=== PATIENT | female | born 1980 | race Caucasian/White ===

== ENCOUNTER 2020-12-19 14:33 | Outpatient (RCR) | payer OTHER, SELFPAY ==
[2019-04-09 11:58] VITALS: BMI 41.6
== END 2021-02-19 23:59 ==
LOC: IMMUN 14:33
PROVIDERS: Visit Provider Family Medicine
DX: Z23 Encounter for immunization (principal)
CPT/HCPCS: 0002A; 91300

== ENCOUNTER 2021-06-22 19:14 | Emergency (ER) | payer OTHER, SELFPAY ==
[2021-06-22 19:16] VITALS: BP 128/87; PULSE 112; RESP 16; TEMP 36.3; O2SAT 97; O2SAT 98; BMI 45.6
--- NOTE | 2021-06-22 20:22 | RAD_ITS ---
STUDY: X-RAY CHEST REASON FOR EXAM: Female, 41 years old. Neutropenic Fever TECHNIQUE: PA and lateral views of the chest. COMPARISON: 10/22/2014 FINDINGS: Left subclavian chest port with tip overlying the upper right atrium. The lungs are clear and expanded. There is no demonstrated pleural abnormality. Normal size heart. Normal mediastinum and kiesha. Normal visualized pulmonary arteries. Normal visualized aortic arch and descending thoracic aorta. Normal visualized thoracic spine. Normal visualized ribs, clavicles, and shoulders. There is no demonstrated abnormality of the visualized soft tissue structures of the upper abdomen. RAD/Chest PA and Lateral IMPRESSION: No acute cardiopulmonary process. Electronically Signed: Andrés Grover MD ([place]) at 21:17 EDT , Service support ,
--- NOTE | 2021-06-22 21:01 | EX.ED.DYSGE1 ---
HPI History of Present Illness Chief Complaint: Fever Informant: patient Narrative Narrative: Patient presents with fever while taking chemotherapy. Symptoms started last night. She started with a bit of a sore throat and mild congestion. She was seen earlier today. Negative strep. Covid was done but not resulted yet. Later today she has now developed a bit of a cough. She states she is not short of breath but she just occasionally hears some wheezing or extra sounds that she is not used to hearing. She has no history of pulmonary disease. She is not having nausea vomiting diarrhea or abdominal pain. No rashes. No sore areas. No soreness at her Mediport. Patient was diagnosed with breast cancer the end of March. She is getting every other week chemotherapy. Her last chemo was just about 2 weeks ago on Thursday. She contacted her oncologist. Because her fever went up to 100.5 she was referred in here to evaluate for possibility of neutropenic fever. [facility] Medical History (Updated 06/22/21 @ 22:[address] Manuel Noyola MD) Hay fever History of removal of cervix but not uterus Home Medications ciprofloxacin HCl 500 mg PO BID #14 tab 06/22/21 [Rx Last Taken Unknown] escitalopram oxalate 10 mg DAILY 06/22/21 [History Last Taken Unknown] Allergy/AdvReac Type Severity Reaction Status Date / Time codeine Allergy Severe Swelling Verified 04/09/19 11:57 iodine Allergy Hives Verified 06/22/21 19:15 shellfish derived Allergy Hives Verified 04/09/19 11:57 Family History Other Cancer Heart disease Surgical History History of delivery Social History Smoking Status: Unknown if ever smoked alcohol intake: never ROS ROS ED Constitutional Constitutional ED: Reports chills and fever(s); Denies sweats Eyes Eyes: Denies blurry vision or change in vision ENT ENT ED: Reports rhinorrhea and sore throat; Denies ear pain Cardiovascular Cardiovascular: Denies chest pain or palpitations Respiratory/Chest Respiratory/Chest: Reports cough; Denies dyspnea or sputum Gastrointestinal Gastrointestinal: Denies abdominal pain, diarrhea, nausea or vomiting Genitourinary Genitourinary ED: Denies dysuria, hematuria or urinary frequency Musculoskeletal Musculoskeletal: Reports myalgias Integumentary Denies abscess, Abrasions or rash Neurologic Neurologic: Denies weakness Psychiatric Psychiatric: Denies anxiety or depression Endocrine Endocrinology: Denies polydipsia or polyuria Allergic/Immunologic Allergic/Immunologic ED: Denies mouth swelling or urticaria EXAM Physical Exam Const Vital Signs: 06/22/21 19:16 06/22/21 21:14 06/22/21 21:16 Temperature 97.4 F L 97.5 F L Temperature Source Temporal Temporal Pulse Rate 112 H 95 Respiratory Rate 16 17 Blood Pressure 128/87 H 135/80 H Blood Pressure Mean 100 98 Pulse Ox 98 96 96 Oxygen Delivery Method Room Air Room Air Room Air 06/22/21 21:17 Temperature Temperature Source Pulse Rate Respiratory Rate 17 Blood Pressure Blood Pressure Mean Pulse Ox Oxygen Delivery Method Positive well nourished and well developed Constitutional Narrative: Despite her history, patient looks nontoxic at this time. General Appearance ED: well developed and NAD HEENT Reports moist mucous membranes HEENT Narrative: Mucous membranes are moist. I see no exudate or swelling. I do not see any signs of thrush either. Negative for trauma or tenderness Eyes General Eye ED: Negative for pale conjunctiva or scleral icterus Neck no lymphadenopathy and no JVD Chest Wall inspection of chest normal Resp normal respiratory effort Resp Narrative: I initially heard a slight wheeze in the left upper lobe. But after another deep breath it disappeared. There may be some very mild rhonchi. No rales. Her med port in the left upper chest is clean dry intact and not red. It is nontender. Cardio regular rhythm Rate: tachycardic GI normal to inspection, nondistended, normoactive bowel sounds and non-tender Palpation: soft Back/Spine no CVA tenderness Extremity normal to inspection Neuro oriented x3 Sensorium / Orientation: alert Psych mental status grossly normal Skin no rashes or lesions noted MDM MDM MDM Narrative Medical decision making narrative: Some of the patient's initial labs were abnormal. However, we found that the Mediport may not have been fully flushed. These were redrawn. Her PT and INR and PTT are now normal. Electrolytes show no marked abnormalities. Liver function test is normal. Lactate is normal. Her white count is 18.4. Hemoglobin is a little bit low at 9.3. Platelets are 141. Chest x-ray shows no acute process. Covid is negative. I am still waiting on her urinalysis. I discussed the case with Dr. Be who knows this patient quite well. He explained that we will start her on Cipro. We are still waiting her urinalysis but still we will get her started on Cipro. We will give her a dose of Levaquin here. He thinks the white count may also be up because she has received Neulasta. She has chemotherapy coming on Thursday will be rechecked. Lab Data Labs: Laboratory Results - last 24 hr 06/22/21 06/22/21 06/22/21 20:52 20:52 20:52 WBC 18.4 H RBC 3.49 L Hgb 9.3 L Hct 29.5 L MCV 84.5 MCH 26.6 L MCHC 31.5 L RDW Std Deviation 43.7 RDW Coeff of Jenny 14.8 H Plt Count 141 L MPV 9.7 Neut % (Auto) Not Reportable Absolute Neuts (auto) 16.5 H Absolute Lymphs (auto) 1.10 Total Counted 100 Neutrophils % (Manual) 64 Band Neutrophils % 6 H Lymphocytes % (Manual) 6 L Monocytes % (Manual) 4 Metamyelocytes % 13 H Myelocytes % 7 H Nucleated RBCs/100 WBC 3 Differential Comment MANUAL DIFF Diff Path Review May foll Platelet Estimate ADEQUATE RBC Morphology N CYTIC Polychromasia 1+ PT 15.5 H INR 1.3 APTT 186.8 H* Sodium Cancelled Potassium Cancelled Chloride Cancelled Carbon Dioxide Cancelled Anion Gap Cancelled BUN Cancelled Creatinine Cancelled Estim Creat Clear Calc Cancelled Est GFR (MDRD) Af Amer Cancelled Est GFR (MDRD) Non-Af Cancelled BUN/Creatinine Ratio Cancelled Glucose Cancelled Lactic Acid Calcium Cancelled Total Bilirubin Cancelled AST Cancelled ALT Cancelled Alkaline Phosphatase Cancelled Total Protein Cancelled Albumin Cancelled Globulin Cancelled Albumin/Globulin Ratio Cancelled 06/22/21 06/22/21 06/22/21 20:52 21:36 21:36 WBC RBC Hgb Hct MCV MCH MCHC RDW Std Deviation RDW Coeff of Jenny Plt Count MPV Neut % (Auto) Absolute Neuts (auto) Absolute Lymphs (auto) Total Counted Neutrophils % (Manual) Band Neutrophils % Lymphocytes % (Manual) Monocytes % (Manual) Metamyelocytes % Myelocytes % Nucleated RBCs/100 WBC Differential Comment Diff Path Review Platelet Estimate RBC Morphology Polychromasia PT 12.5 INR 1.0 APTT 25.1 Sodium 140 Potassium 3.8 Chloride 107 Carbon Dioxide 26.0 Anion Gap 7 BUN 6 L Creatinine 0.58 Estim Creat Clear Calc 112.54 Est GFR (MDRD) Af Amer 144 Est GFR (MDRD) Non-Af 119 BUN/Creatinine Ratio 10.3 Glucose 96 Lactic Acid 0.6 Calcium 8.4 L Total Bilirubin 0.30 AST 20 ALT 32 Alkaline Phosphatase 105 Total Protein 6.5 Albumin 3.0 L Globulin 3.5 Albumin/Globulin Ratio 0.9 Radiography Diagnostic Testing: Clinical Impression(s) from Imaging Studies Chest X-Ray 06/22/21 20:22 IMPRESSION: No acute cardiopulmonary process. Electronically Signed: Andrés Grover MD ([place]) at 21:17 EDT , Service support , Discharge Plan Triage Chief Complaint: Fever ED Provider: Manuel Noyola Dx/Rx/DC Orders Clinical Impression: Fever, Leukocytosis, History of breast cancer Prescriptions: New ciprofloxacin HCl [ciprofloxacin HCl] 500 MG tablet 500 mg PO BID Qty: 14 RF: 0 No Action escitalopram oxalate 10 mg tablet 10 mg DAILY RF: 0 Primary Care Provider: Lui Simpson Referrals: Dwaine Be DO [STAFF PHYSICIAN] - 2 Days Lui Simpson MD [Primary Care Provider] - Disposition Disposition: Home, Self Care
[2021-06-22 21:07] LABS: Hematocrit 29.5 % (37-47); Hemoglobin 9.3 g/dL (12.0-15.0); Mean Corp Hgb Conc 31.5 g/dL (32-36); Mean Corpuscular Hgb 26.6 pg (27.0-32.0); Mean Corpuscular Volume 84.5 fL (81-99); Mean Platelet Vol. 9.7 fl (6.2-12.0); POSITIVE COUNT YES; POSITIVE DIFFERENTIAL YES; POSITIVE MORPHOLOGY YES; Platelet Count 141 K/mm3 (150-450); RBC Distribution Width CV 14.8 % (11.6-14.6); RBC Distribution Width SD 43.7 fl (35.1-43.9); Red Blood Count 3.49 M/mm3 (4.2-5.4); White Blood Count 18.4 K/mm3 (4.4-11.0)
[2021-06-22 21:14] VITALS: BP 135/80; PULSE 95; RESP 17; TEMP 36.4; O2SAT 96
[2021-06-22 21:16] VITALS: O2SAT 96
[2021-06-22 21:17] VITALS: RESP 17
[2021-06-22] MEDS: 0.9% Normal Saline 1,000 ML 50 ML IV (21:17)
[2021-06-22 21:18] LABS: International Normalized Ratio 1.3; Prothrombin Time (Protime)PT. 15.5 SECONDS (11.7-14.9)
[2021-06-22 21:21] LABS: Differential Indicated MANUAL DIFF
[2021-06-22 21:38] LABS: Partial Thromboplast Time 186.8 Seconds (24.1-36.2)
[2021-06-22 21:45] LABS: Lactic Acid 0.6 mmol/L (0.4-1.9)
[2021-06-22 22:10] LABS: Bacteria 0 SEEN /hpf (None Seen); Mucous, Urine 0 SEEN /hpf (<or=2+); Red Blood Cells-Urine 0 SEEN /hpf (0-5); White Blood Cells 0 SEEN /hpf (0-5)
[2021-06-22 22:12] LABS: Prothrombin Time (Protime)PT. 12.5 SECONDS (11.7-14.9)
[2021-06-22 22:13] LABS: Partial Thromboplast Time 25.1 Seconds (24.1-36.2)
[2021-06-22 22:18] LABS: Lymphocyte 6 % (19-41); Metamyelocyte 13 % (0-1); Monocyte 4 % (0-10); Myelocyte 7 % (0-0); Neutrophil-Band 6 % (0-5); Neutrophil-Segmented 64 % (47-70); Total Cells Counted 100 (MANUAL DIFF)
[2021-06-22 22:19] LABS: ALB/GLOB Ratio 0.9 RATIO (0.9-2.4); AST(SGOT) 20 U/L (15-37); Alanine Aminotransfer ALT/SGPT 32 U/L (13-56); Alkaline Phosphatase 105 U/L (45-117); Anion Gap 7 (5-15); BUN 6 mg/dL (7-18); BUN/Creat Ratio 10.3 RATIO (10-20); Calcium,Total 8.4 mg/dL (8.5-10.1); Chloride 107 mmol/L (98-107); Creatinine, Serum 0.58 mg/dL (0.55-1.02); EST Glomerular Filtration Rate 119 mL/min (>60); Est Glom Filt Rate - Afr Amer 144 mL/min (>60); Estimated Creatinine Clearance 112.54 ml/min; Globulin 3.5 g/dL (2.2-4.2); Glucose 96 mg/dL (74-106); Potassium 3.8 mmol/L (3.5-5.1); Protein, Total 6.5 g/dL (6.4-8.2); Sodium Level 140 mmol/L (136-145)
[2021-06-22 22:19] LABS: Nucleated Red Bld Cells,Manual 3 % (0-5)
[2021-06-22 22:20] LABS: Absolute Neutrophil Count 16.5 X10^3/uL (2.0-7.7); Differential Comment MANUAL DIFF
[2021-06-22 22:22] LABS: Platelet Estimate ADEQUATE (ADEQ)
[2021-06-22 22:23] LABS: Polychromasia 1+; Red Cell Morphology N CYTIC NORMAL (NORM C&C)
[2021-06-22 22:27] LABS: Color, Urine Yellow (Yellow); Glucose, Dipstick Normal (Normal); Ketone-Dipstick Negative (Negative); Leukocyte Esterase-Dipstick Negative /ul (Negative); Nitrite-Dipstick Negative (Negative); Occult Blood-Urine Negative /ul (Negative); Protein-Dipstick Negative (Negative); Specific Gravity, Urine 1.005 (1.002-1.030); Urine Bilirubin Dipstick Negative (Negative); Urine Clarity Sl. Cloudy (Clear); Urine Urobilinogen Normal (Normal)
[2021-06-22 22:47] LABS: Squamous Epithelial Cells - UA 0-5 SEEN /hpf (5-10)
[2021-06-22 22:56] VITALS: BP 124/64; PULSE 98; RESP 23; TEMP 36.2; O2SAT 100
[2021-06-22] MEDS: levoFLOXacin IV 750 MG/150 ML BAG 100 MG IV (23:01)
[2021-06-22 23:03] VITALS: PULSE 74; RESP 16
[2021-06-23 00:38] VITALS: BP 132/74
[2021-06-24 13:08] LABS: Pathologist Review Reviewed
== END 2021-06-23 00:41 | disposition home or self-care (01) ==
PROVIDERS: Emergency Provider Emergency Medicine; PCP Family Medicine
DX: R50.9 Fever, unspecified (principal); D72.829 Elevated white blood cell count, unspecified; C50.919 Malignant neoplasm of unspecified site of unspecified female breast; R05.9 Cough, unspecified; J02.9 Acute pharyngitis, unspecified; R09.81 Nasal congestion; Z79.899 Other long term (current) drug therapy
CPT/HCPCS: 71046; 80053; 81001; 83605; 85025; 85610; 85730; 87040; 87086; 87088; 87426; 96361; 96365; 96366; 99285; J7030; J7050; A4216

== ENCOUNTER 2022-01-22 11:37 | Emergency (ER) | payer OTHER, SELFPAY ==
[2022-01-22 11:39] VITALS: BP 136/84; PULSE 83; RESP 18; TEMP 36.4; O2SAT 96; BMI 43.9
--- NOTE | 2022-01-22 12:43 | ED.VIS.GI ---
HPI HPI - GI History of Present Illness Chief Complaint: Abd Pain Narrative Narrative: 41-year-old female presenting with abdominal pain. She has kind of left upper quadrant and left lower quadrant abdominal pain. She states that she had a couple of loose stools this week but it became solid. She does not feel she is constipated. She states that she had a fever on Thursday which never reached 100.2. She took her temperature 2 times. She is not had a return of the fever. She does admit that she has a little bit nasal congestion but attributes to seasonal allergies. She does not have a cough or shortness of breath. Patient received chemotherapy last week for breast cancer and this was on . She does radiation every day. She is on Lupron. PFSH [facility] Medical History Hay fever History of removal of cervix but not uterus Home Medications escitalopram oxalate 10 mg DAILY 06/22/21 [History Last Taken Unknown] promethazine [Phenergan] 25 mg PO Q6H PRN 01/22/22 [History Last Taken Unknown] Allergy/AdvReac Type Severity Reaction Status Date / Time codeine Allergy Severe Swelling Verified 01/22/22 11:39 iodine Allergy Hives Verified 01/22/22 11:39 shellfish derived Allergy Hives Verified 01/22/22 11:39 Family History Other Cancer Heart disease Surgical History History of delivery Hx of lymph node excision Hx of mastectomy Social History Smoking Status: Unknown if ever smoked alcohol intake: never ROS ROS ED Constitutional Constitutional ED: Reports chills, fever(s) and sweats ENT ENT ED: Reports rhinorrhea; Denies sore throat Cardiovascular Cardiovascular: Denies chest pain Respiratory/Chest Respiratory/Chest: Denies cough, dyspnea or sputum Gastrointestinal Gastrointestinal: Reports abdominal pain, diarrhea and nausea; Denies constipation Genitourinary Genitourinary ED: Denies dysuria or hematuria Musculoskeletal Musculoskeletal: Reports myalgias; Denies arthralgias or neck pain Integumentary Denies rash Neurologic Neurologic: Denies headache(s), paresthesias or weakness Psychiatric Psychiatric: Denies anxiety or depression EXAM Physical Exam Const Vital Signs: 01/22/22 11:39 01/22/22 13:41 Temperature 97.6 F L 98.4 F Temperature Source Temporal Temporal Pulse Rate 83 76 Respiratory Rate 18 18 Blood Pressure 136/84 H 123/75 H Blood Pressure Mean 101 91 Pulse Ox 96 97 Oxygen Delivery Method Room Air Room Air Positive well nourished General Appearance ED: NAD; Negative for pallor HEENT Reports moist mucous membranes normocephalic and atraumatic Eyes PERRL and EOMs intact bilaterally General Eye ED: Negative for pale conjunctiva or scleral icterus Resp normal respiratory effort and clear to auscultation bilaterally Cardio regular rate and regular rhythm GI Palpation: soft and tender epigastric, LLQ and LUQ Back/Spine no CVA tenderness Neuro Sensorium / Orientation: alert, oriented to person, oriented to place and oriented to time Psych mental status grossly normal and thought process normal Skin General Skin Exam: Negative for jaundice or pallor Lesions: no lesions Rashes: no rashes MDM MDM MDM Narrative Medical decision making narrative: Patient presenting with resolved fever as well as abdominal pain which has been persistent. She has nausea medicine at home which has helped. Blood work is obtained and her CBC shows that she is leukopenic and lymphopenic. This could possibly be due to her chemotherapy however I did check for COVID and influenza and these are both negative. Renal function electrolytes are normal. AST is slightly elevated at 79 and ALT is slightly elevated at 57. Otherwise LFTs are normal. Urinalysis negative for infection. Chest x-ray on my interpretation shows no acute cardiopulmonary process and radiologist does agree. CT abdomen pelvis is negative for acute findings. At this point I feel the patient is stable for discharge home. She is given return precautions. Impression: 1. Abdominal pain 2. Febrile illness resolved 3. Nausea Lab Data Labs: Laboratory Results - last 24 hr 01/22/22 01/22/22 01/22/22 12:37 13:07 13:07 WBC 3.9 L RBC 5.12 Hgb 13.0 Hct 39.4 MCV 77.0 L MCH 25.4 L MCHC 33.0 RDW Std Deviation 37.2 RDW Coeff of Jenny 13.2 Plt Count 77 L MPV 10.8 Immature Gran % (Auto) 0.300 Neut % (Auto) 57.0 Lymph % (Auto) 17.1 L [place] % (Auto) 19.4 H Eos % (Auto) 5.7 H Baso % (Auto) 0.5 Absolute Neuts (auto) 2.2 Absolute Lymphs (auto) 0.66 L Nucleated RBC % 0 Platelet Estimate MOD DEC RBC Morphology NORM C+C Sodium 137 Potassium 3.5 Chloride 101 Carbon Dioxide 29.0 Anion Gap 7 BUN 11 Creatinine 0.62 Estim Creat Clear Calc 105.28 Est GFR (MDRD) Af Amer 134 Est GFR (MDRD) Non-Af 111 BUN/Creatinine Ratio 17.7 Glucose 92 Calcium 9.5 Total Bilirubin 0.60 AST 79 H ALT 57 H Alkaline Phosphatase 104 Total Protein 7.8 Albumin 3.5 Globulin 4.3 H Albumin/Globulin Ratio 0.8 L Lipase 61 L Urine Color Yellow Urine Clarity Sl. Cloudy Urine pH 6.0 Ur Specific [place] 1.015 Urine Protein 30 H Urine Glucose (UA) Normal Urine Ketones Negative Urine Occult Blood 10 H Urine Nitrite Negative Urine Bilirubin Negative Urine Urobilinogen Normal Ur Leukocyte Esterase 500 H Urine RBC 0-5 SEEN Urine WBC 25-50 SEEN Ur Squamous Epith Cells 0-5 SEEN Urine Bacteria 1+ Urine Mucus 1+ Radiography Diagnostic Testing: Clinical Impression(s) from Imaging Studies Chest X-Ray 01/22/22 13:20 IMPRESSION: Normal x-ray examination of the chest. Electronically Signed: Major Smith MD at 13:30 EDT , Abdomen/Pelvis CT 01/22/22 13:21 IMPRESSION: Status post right breast surgery with reconstruction and breast prosthesis. No acute abnormality is seen. Electronically Signed: Major Smith MD at 14:10 EDT , Discharge Plan Triage Chief Complaint: Abd Pain ED Provider: Pancho Dalal Dx/Rx/DC Orders Instructions: ED Abdominal Pain Unkn Cause Fem, ED Fever Control (Adult) Prescriptions: No Action escitalopram oxalate 10 mg tablet 10 mg DAILY RF: 0 promethazine [Phenergan] 25 mg Tablet 25 mg PO Q6H PRN (Reason: Nausea) RF: 0 Primary Care Provider: Lui Simpson Referrals: Lui Simpson MD [Primary Care Provider] - Disposition Disposition: Home, Self Care Discharge Date/Time: 01/22/22 15:13
[2022-01-22 12:44] LABS: Color, Urine Yellow (Yellow); Glucose, Dipstick Normal (Normal); Ketone-Dipstick Negative (Negative); Leukocyte Esterase-Dipstick 500 /ul (Negative); Nitrite-Dipstick Negative (Negative); Occult Blood-Urine 10 /ul (Negative); Protein-Dipstick 30 mg/dl (Negative); Specific Gravity, Urine 1.015 (1.002-1.030); Urine Bilirubin Dipstick Negative (Negative); Urine Clarity Sl. Cloudy (Clear); Urine Urobilinogen Normal (Normal)
[2022-01-22 12:51] LABS: Bacteria 1+ /hpf (None Seen); Mucous, Urine 1+ /hpf (<or=2+); Red Blood Cells-Urine 0-5 SEEN /hpf (0-5); Squamous Epithelial Cells - UA 0-5 SEEN /hpf (5-10); White Blood Cells 25-50 SEEN /hpf (0-5)
[2022-01-22 13:15] LABS: Absolute Lymphocyte Count 0.66 X10^3/uL (0.83-4.51); Absolute Neutrophil Count 2.2 X10^3/uL (2.0-7.7); Basophil# 0.02 X10^3/uL; Basophil% 0.5 % (0-1); Eosinophil# 0.22 X10^3/uL; Eosinophils% 5.7 % (0-5); Hematocrit 39.4 % (37-47); Lymphocyte # 0.66 X10^3/ul (0.83-4.51); Lymphocyte % 17.1 % (19-41); Mean Corpuscular Hgb 25.4 pg (27.0-32.0); Mean Platelet Vol. 10.8 fl (6.2-12.0); Monocyte# 0.75 X10^3/uL; Monocyte% 19.4 % (0-10); NRBC Flagged by Analyzer 0 % (0-5); POSITIVE COUNT YES; Platelet Count 77 K/mm3 (150-450); RBC Distribution Width CV 13.2 % (11.6-14.6); RBC Distribution Width SD 37.2 fl (35.1-43.9); Red Blood Count 5.12 M/mm3 (4.2-5.4); White Blood Count 3.9 K/mm3 (4.4-11.0)
--- NOTE | 2022-01-22 13:20 | RAD_ITS ---
STUDY: X-RAY CHEST REASON FOR EXAM: Female, 41 years old. Cough and fever. TECHNIQUE: Single AP portable view of the chest. COMPARISON: Comparison is made with prior study 06/22/2021. FINDINGS: A left-sided arsh catheter seen with the tip in the right atrium. The patient is status post right axillary dissection and right prosthetic breast. The lungs are clear and expanded. There is no demonstrated pleural abnormality. Normal size heart. Normal mediastinum and kiesha. Normal visualized pulmonary arteries. Normal visualized aortic arch and descending thoracic aorta. Normal visualized thoracic spine. Normal visualized ribs, clavicles, and shoulders. There is no demonstrated abnormality of the visualized soft tissue structures of the upper abdomen. RAD/Chest 1 View (Portable) IMPRESSION: Normal x-ray examination of the chest. Electronically Signed: Major Smith MD at 13:30 EDT ,
--- NOTE | 2022-01-22 13:21 | CT_ITS ---
STUDY: CT ABDOMEN AND PELVIS WITHOUT CONTRAST REASON FOR EXAM: Female, 41 years old. Fever and abdominal pain. Receiving chemotherapy for right-sided breast cancer. RADIATION DOSAGE (If Supplied By Facility): CTDIvol = ( 21.51 ) mGy, DLP = ( 1070.53 ) mGycm TECHNIQUE: Transaxial images were obtained from the dome of the diaphragm to the symphysis pubis without oral contrast, and without intravenous contrast. Sagittal and coronal images were reconstructed. Individualized dose optimization techniques were used for this CT. COMPARISON: None. FINDINGS: The patient is status post right breast reconstruction with right breast prosthesis. Postoperative changes are seen in the overlying breast soft tissues. A right-sided portacatheter is seen. The visualized lung bases are unremarkable. The visualized portions of the heart are within normal limits. Normal liver. Normal gallbladder and extrahepatic biliary system. Normal spleen. Normal pancreas. Normal bilateral adrenal glands. Normal right kidney. Normal left kidney. Normal visualized stomach. Normal small intestine. Normal colon. The appendix is visualized and appears normal. Normal abdominal aorta. Normal inferior vena cava. Normal retroperitoneum. Normal urinary bladder. There is a small umbilical hernia containing fat. Small benign-appearing bilateral inguinal lymph nodes. Normal osseous structures. CT/Abdomen/Pelvis without Cont IMPRESSION: Status post right breast surgery with reconstruction and breast prosthesis. No acute abnormality is seen. Electronically Signed: Major Smith MD at 14:10 EDT ,
[2022-01-22 13:22] LABS: Differential Indicated SCAN CRITERIA MET
[2022-01-22 13:28] LABS: ALB/GLOB Ratio 0.8 RATIO (0.9-2.4); AST(SGOT) 79 U/L (15-37); Alanine Aminotransfer ALT/SGPT 57 U/L (13-56); Albumin, Serum 3.5 g/dL (3.2-5.0); Alkaline Phosphatase 104 U/L (45-117); Anion Gap 7 (5-15); BUN 11 mg/dL (7-18); BUN/Creat Ratio 17.7 RATIO (10-20); Calcium,Total 9.5 mg/dL (8.5-10.1); Chloride 101 mmol/L (98-107); Creatinine, Serum 0.62 mg/dL (0.55-1.02); EST Glomerular Filtration Rate 111 mL/min (>60); Est Glom Filt Rate - Afr Amer 134 mL/min (>60); Estimated Creatinine Clearance 105.28 ml/min; Globulin 4.3 g/dL (2.2-4.2); Glucose 92 mg/dL (74-106); Lipase 61 U/L (73-393); Potassium 3.5 mmol/L (3.5-5.1); Protein, Total 7.8 g/dL (6.4-8.2); Sodium Level 137 mmol/L (136-145)
[2022-01-22 13:41] VITALS: BP 123/75; PULSE 76; RESP 18; TEMP 36.9; O2SAT 97
[2022-01-22 13:50] LABS: Platelet Estimate MOD DEC (ADEQ); Red Cell Morphology NORM C+C NORMAL (NORM C&C)
== END 2022-01-22 15:13 | disposition home or self-care (01) ==
PROVIDERS: Emergency Provider Student in an Organized Health Care Education/Training Program; PCP Family Medicine; Visit Provider Student in an Organized Health Care Education/Training Program
DX: R10.32 Left lower quadrant pain (principal); C50.919 Malignant neoplasm of unspecified site of unspecified female breast; R10.12 Left upper quadrant pain; R19.7 Diarrhea, unspecified; R11.0 Nausea; J34.89 Other specified disorders of nose and nasal sinuses; R50.9 Fever, unspecified; Z79.899 Other long term (current) drug therapy
CPT/HCPCS: 71045; 74176; 80053; 81001; 83690; 85025; 87428; 99284; A4216

== ENCOUNTER 2022-02-26 17:13 | Emergency (ER) | payer OTHER, SELFPAY ==
[2022-02-26 17:14] VITALS: BP 131/72; PULSE 92; RESP 18; TEMP 36.3; O2SAT 97; BMI 44.0
--- NOTE | 2022-02-26 18:33 | EKG12_ITS ---
Test Reason : DYSRHYTHMIA Blood Pressure : / mmHG Vent. Rate : 074 BPM Atrial Rate : 074 BPM P-R Int : 194 ms QRS Dur : 112 ms QT Int : 442 ms P-R-T Axes : 024 -10 027 degrees QTc Int : 490 ms Normal sinus rhythm Prolonged QT Abnormal ECG Confirmed by MARCELLA GOODSON, ALEENA ([id number]), electronic news gathering editor MARV THRASHER ([id number]) on 03/03/2022 12:45:53 PM Referred By: DANNA Confirmed By:ALEENA NARANJO MD
[2022-02-26] MEDS: MethylPREDNISolone 125 MG/2 ML Vial IV (18:56)
[2022-02-26] MEDS: DiphenhydrAMINE 50 MG/ML Syringe 25 MG IV (18:57)
[2022-02-26 19:04] LABS: Absolute Lymphocyte Count 1.22 X10^3/uL (0.83-4.51); Absolute Neutrophil Count 5.8 X10^3/uL (2.0-7.7); Basophil# 0.03 X10^3/uL; Basophil% 0.4 % (0-1); Eosinophil# 0.22 X10^3/uL; Eosinophils% 2.7 % (0-5); Hematocrit 38.6 % (37-47); Hemoglobin 12.4 g/dL (12.0-15.0); Lymphocyte # 1.22 X10^3/ul (0.83-4.51); Lymphocyte % 15.2 % (19-41); Mean Corp Hgb Conc 32.1 g/dL (32-36); Mean Corpuscular Hgb 25.4 pg (27.0-32.0); Mean Corpuscular Volume 78.9 fL (81-99); Mean Platelet Vol. 10.4 fl (6.2-12.0); Monocyte# 0.79 X10^3/uL; Monocyte% 9.8 % (0-10); NRBC Flagged by Analyzer 0 % (0-5); Neutrophil # 5.76 X10^3/uL (2.7-7.7); Neutrophil % 71.5 % (47-70); Platelet Count 194 K/mm3 (150-450); RBC Distribution Width CV 15.8 % (11.6-14.6); RBC Distribution Width SD 44.4 fl (35.1-43.9); Red Blood Count 4.89 M/mm3 (4.2-5.4); White Blood Count 8.1 K/mm3 (4.4-11.0)
[2022-02-26 19:13] VITALS: BP 129/81; PULSE 73; RESP 17; O2SAT 97
[2022-02-26 19:24] LABS: Anion Gap 5 (5-15); BUN 14 mg/dL (7-18); BUN/Creat Ratio 19.7 RATIO (10-20); Calcium,Total 9.6 mg/dL (8.5-10.1); Chloride 103 mmol/L (98-107); Creatinine, Serum 0.71 mg/dL (0.55-1.02); EST Glomerular Filtration Rate 95 mL/min (>60); Est Glom Filt Rate - Afr Amer 115 mL/min (>60); Estimated Creatinine Clearance 91.93 ml/min; Glucose 88 mg/dL (74-106); Potassium 3.7 mmol/L (3.5-5.1); Sodium Level 138 mmol/L (136-145); Troponin-I HS (w/2H Reflex) 7 pg/mL (3.0-54.0)
--- NOTE | 2022-02-26 20:01 | CT_ITS ---
EXAM: CT ANGIOGRAPHY CHEST WITHOUT AND WITH INTRAVENOUS CONTRAST CLINICAL INDICATION: elevated d-dimer TECHNIQUE: Helically acquired angiography images were obtained of the chest without and with intravenous contrast. This CT exam was performed using one or more of the following dose reduction techniques: automated exposure control, adjustment of the mA and/or kV according to patient size, and/or use of iterative reconstruction technique. This report was created using [employer] report generation technology. MIP reconstructed images were created and reviewed. CONTRAST: IV 100mL [id number] COMPARISON: Chest radiograph January 22, 2022 FINDINGS: PULMONARY ARTERIES: Unremarkable. Normal in caliber. No evidence of pulmonary embolism. AORTA: Unremarkable. Normal in caliber. No evidence of dissection. GREAT VESSELS OF AORTIC ARCH: Unremarkable. Normal in caliber. No evidence of dissection. LUNGS AND PLEURAL SPACES: Unremarkable. No mass. No consolidation or edema. No pleural effusion or thickening. No pneumothorax. HEART: Unremarkable. Heart size is normal. No pericardial effusion. No signs of right heart strain, ratio of right ventricle to left ventricle measures less than 1. MEDIASTINUM: Unremarkable. No mediastinal or hilar adenopathy. Esophagus is unremarkable. No hiatal hernia. THYROID: Unremarkable. No thyroid lesions. BONES/JOINTS: Unremarkable. No suspicious lytic or blastic abnormality. SOFT TISSUES: Postoperative changes of the right breast noted. TUBES, LINES AND DEVICES: Left subclavian infusion catheter remains in place. CT/CTA Chest W/WO Contrast IMPRESSION: 1. No acute cardiopulmonary abnormality. 2. No evidence of acute pulmonary embolism. Electronically Signed: Pan Kendrick MD at 20:29 EDT ,
[2022-02-26 21:00] VITALS: BP 122/67; PULSE 71; RESP 19; O2SAT 96
[2022-02-26 21:01] LABS: Reflex Troponin-HS? (from REC) Y
[2022-02-26 21:52] LABS: Troponin-I HS 10 pg/mL (3.0-54.0)
--- NOTE | 2022-02-26 21:55 | EDS_ITS ---
HPI History of Present Illness Chief Complaint: Abn Labs Narrative Narrative: 41-year-old female with history of breast cancer on chemotherapy presenting with an elevated D-dimer outpatient. She states she was drawn because the patient was telling Dr. Be that she was feeling a little bit lightheaded recently. She denies any chest pain or significant shortness of breath. She is not had any changes in her breathing patterns. No history of DVT/PE. He is not having vertiginous dizziness. She denies fever, chills, cough. [facility] Medical History (Updated 02/26/22 @ 18:17 by Maryana Mak) Breast cancer Hay fever History of removal of cervix but not uterus Home Medications escitalopram oxalate 10 mg tablet 10 mg DAILY 06/22/21 [History Last Taken 02/26/22] promethazine 25 mg tablet 25 mg PO Q6H PRN Nausea 01/22/22 [History Last Taken Unknown] anastrozole 1 mg tablet 1 mg PO DAILY 02/26/22 [History Last Taken 02/26/22] leuprolide 3.75 mg intramuscular syringe kit (Lupron Depot) mg IM 02/26/22 [History Last Taken 02/21/22] Allergy/AdvReac Type Severity Reaction Status Date / Time codeine Allergy Severe Swelling Verified 02/26/22 17:14 iodine Allergy Hives Verified 02/26/22 17:14 shellfish derived Allergy Hives Verified 02/26/22 17:14 Family History Other Cancer Heart disease Surgical History History of delivery Hx of lymph node excision Hx of mastectomy Social History Smoking Status: Never smoker alcohol intake: never ROS ROS ED ROS Narrative Occasional lightheadedness Constitutional Constitutional ED: Denies chills, fever(s) or sweats Eyes Eyes: Denies blurry vision or change in vision ENT ENT ED: Denies ear pain, rhinorrhea or sore throat Cardiovascular Cardiovascular: Denies chest pain, palpitations or racing heartbeat Respiratory/Chest Respiratory/Chest: Denies cough, dyspnea or sputum Gastrointestinal Gastrointestinal: Denies abdominal pain, constipation, diarrhea or vomiting Genitourinary Genitourinary ED: Denies dysuria, hematuria or urinary frequency Musculoskeletal Musculoskeletal: Denies arthralgias, myalgias or neck pain Integumentary Denies abscess, Abrasions or rash Neurologic Neurologic: Denies headache(s), paresthesias or weakness Psychiatric Psychiatric: Denies anxiety, depression, suicidal ideation or suicidal thoughts Endocrine Endocrinology: Denies polydipsia or polyuria EXAM Physical Exam Const Vital Signs: 02/26/22 17:14 02/26/22 18:14 02/26/22 19:13 Temperature 97.4 F L Temperature Source Temporal Pulse Rate 92 73 Respiratory Rate 18 17 Respiratory Effort Normal Non-Labored Respiratory Pattern Normal Blood Pressure 131/72 H 129/81 H Blood Pressure Mean 91 97 Pulse Ox 97 97 Oxygen Delivery Method Room Air Room Air 02/26/22 21:00 02/26/22 22:12 Temperature Temperature Source Pulse Rate 71 64 Respiratory Rate 19 H 18 Respiratory Effort Respiratory Pattern Blood Pressure 122/67 H 122/67 H Blood Pressure Mean 85 Pulse Ox 96 94 Oxygen Delivery Method Room Air Positive well nourished General Appearance ED: Negative for pallor HEENT Reports normocephalic, head/scalp atraumatic and moist mucous membranes Eyes PERRL and EOMs intact bilaterally Neck no lymphadenopathy and supple Chest Wall inspection of chest normal and palpation of chest normal Resp normal respiratory effort and clear to auscultation bilaterally Auscultation: Negative for rales, rhonchi or wheezes Cardio regular rate and regular rhythm Narrative: Deferred Extremity normal to inspection General Extremety ED: Negative for edema or tenderness General Extremity: Negative for edema Neuro oriented x3 and CN's II-XII intact bilaterally Sensorium / Orientation: alert Motor Exam: strength 5/5 throughout Psych mental status grossly normal Attitude: No agitated Skin no rashes or lesions noted and no wounds General Skin Exam: Negative for jaundice or pallor MDM MDM MDM Narrative Medical decision making narrative: Patient presenting for evaluation of lightheadedness. She is denying any chest pain or shortness of breath. EKG obtained on arrival on my interpretation shows a sinus rhythm with a ventricular rate of 74 bpm with a slightly prolonged QTC at 490. No ST elevation or depression. CBC and BMP unremarkable. High- sensitivity troponin is 7 and at 2 hours it is 10. There is no significant interval change in the patient not having any chest pain. Identified his CTA due to elevated D-dimer of 750 and this is negative for any acute abnormal findi ngs including dissection or PE. Patient counseled on findings. She is to continue to follow-up with Dr. Be and continue her chemotherapy. Impression: 1. Lightheadedness 2. Elevated D-dimer Lab Data Attestation: I reviewed the patient's lab results. Labs: Laboratory Results - last 24 hr 02/26/22 02/26/22 02/26/22 18:50 18:50 21:17 WBC 8.1 RBC 4.89 Hgb 12.4 Hct 38.6 MCV 78.9 L MCH 25.4 L MCHC 32.1 RDW Std Deviation 44.4 H RDW Coeff of Jenny 15.8 H Plt Count 194 MPV 10.4 Immature Gran % (Auto) 0.400 Neut % (Auto) 71.5 H Lymph % (Auto) 15.[address] [place] % (Auto) 9.8 Eos % (Auto) 2.7 Baso % (Auto) 0.4 Absolute Neuts (auto) 5.8 Absolute Lymphs (auto) 1.22 Nucleated RBC % 0 Sodium 138 Potassium 3.7 Chloride 103 Carbon Dioxide 30.0 Anion Gap 5 BUN 14 Creatinine 0.71 Estim Creat Clear Calc 91.93 Est GFR (MDRD) Af Amer 115 Est GFR (MDRD) Non-Af 95 BUN/Creatinine Ratio 19.7 Glucose 88 Calcium 9.6 Troponin I High Sens 7 10 Radiography Diagnostic Testing: Clinical Impression(s) from Imaging Studies Chest CTA 02/26/22 20:01 IMPRESSION: 1. No acute cardiopulmonary abnormality. 2. No evidence of acute pulmonary embolism. Electronically Signed: Pan Kendrick MD at 20:29 EDT , Discharge Plan Triage Chief Complaint: Abn Labs ED Provider: Pancho Dalal Dx/Rx/DC Orders Instructions: D-Dimer Prescriptions: No Action escitalopram oxalate 10 mg tablet 10 mg DAILY Label Comments: take 1/2 tablet by mouth once daily for 1 week then INCREASE to 1 tablet once daily promethazine [Phenergan] 25 mg Tablet 25 mg PO Q6H PRN (Reason: Nausea) anastrozole 1 mg Tablet 1 mg PO DAILY Lupron Depot 3.75 mg Syringe Kit IM Label Comments: unsure of exact strength; gets IM injection once a month Primary Care Provider: Lui Simpson Referrals: Lui Simpson MD [Primary Care Provider] - Disposition Disposition: Home, Self Care Discharge Date/Time: 02/26/22 22:13
[2022-02-26 22:12] VITALS: BP 122/67; PULSE 64; RESP 18; O2SAT 94
== END 2022-02-26 22:13 | disposition home or self-care (01) ==
PROVIDERS: Emergency Provider Student in an Organized Health Care Education/Training Program; PCP Family Medicine; Visit Provider Student in an Organized Health Care Education/Training Program
DX: R42 Dizziness and giddiness (principal); C50.919 Malignant neoplasm of unspecified site of unspecified female breast; R79.89 Other specified abnormal findings of blood chemistry; Z79.899 Other long term (current) drug therapy
CPT/HCPCS: 71275; 80048; 84484; 85025; 93005; 96374; 96375; 99284; Q9967; A4216

== ENCOUNTER 2022-04-14 12:50 | Emergency (ER) | payer OTHER, SELFPAY ==
[2022-04-14 12:51] VITALS: BP 128/80; PULSE 82; RESP 18; TEMP 36; O2SAT 95; BMI 44.1
--- NOTE | 2022-04-14 13:15 | EKG12_ITS ---
Test Reason : cp Blood Pressure : / mmHG Vent. Rate : 077 BPM Atrial Rate : 077 BPM P-R Int : 194 ms QRS Dur : 110 ms QT Int : 422 ms P-R-T Axes : 029 -13 019 degrees QTc Int : 477 ms Normal sinus rhythm Normal ECG Confirmed by MARCELLA GOODSON, ALEENA ([id number]), society editor MARV THRASHER ([id number]) on 04/15/2022 1:11:00 PM Referred By: Confirmed By:ALEENA NARANJO MD
--- NOTE | 2022-04-14 13:16 | CT_ITS ---
EXAM: CT ANGIOGRAPHY CHEST WITHOUT AND WITH INTRAVENOUS CONTRAST CLINICAL INDICATION: pulmonary embolism TECHNIQUE: Helically acquired angiography images were obtained of the chest without and with intravenous contrast. This CT exam was performed using one or more of the following dose reduction techniques: automated exposure control, adjustment of the mA and/or kV according to patient size, and/or use of iterative reconstruction technique. This report was created using [employer] report generation technology. MIP reconstructed images were created and reviewed. CONTRAST: IV 100mL Isovue-370 RADIATION DOSE: CTDIvol = 11.45 mGy, DLP = 564.62 mGy-cm COMPARISON: Feb 26 2022 8:03pm report only. FINDINGS: PULMONARY ARTERIES: See below. AORTA: Unremarkable. Normal in caliber. No evidence of dissection. GREAT VESSELS OF AORTIC ARCH: Unremarkable. Normal in caliber. No evidence of dissection. LUNGS AND PLEURAL SPACES: There is a right apical infiltrate suggesting a right upper lobe pneumonia. This obscures the distal pulmonary artery branches making it difficult to assess for PE. However, No demonstrated pulmonary embolism or arterial dissection. No mass. No pleural effusion or thickening. HEART: Unremarkable. Heart size is normal. No pericardial effusion. No signs of right heart strain, ratio of right ventricle to left ventricle measures less than 1. MEDIASTINUM: Unremarkable. No mediastinal or hilar adenopathy. Esophagus is unremarkable. No hiatal hernia. THYROID: Unremarkable. No thyroid lesions. BONES/JOINTS: There are multi-level degenerative changes of the thoracic spine. No suspicious lytic or blastic abnormality. SOFT TISSUES: There is a right breast implants. TUBES, LINES AND DEVICES: There is a left Port-A-Cath and/or mediport in place. The tip is in the superior vena cava. CT/CTA Chest W/WO Contrast IMPRESSION: There is a right apical infiltrate suggesting a right upper lobe pneumonia. This obscures the distal pulmonary artery branches making it difficult to assess for PE. However, No demonstrated pulmonary embolism or arterial dissection. Electronically Signed: Chung Diallo MD at 15:46 EDT ,
--- NOTE | 2022-04-14 13:17 | ED.VIS.CHEST ---
HPI History of Present Illness Chief Complaint: Chest Pain Informant: patient Narrative Narrative: Female currently undergoing chemotherapy for breast cancer presented to the emergency room out of concern for pulmonary embolism. Patient notes the development of a chest pain that is worse with deep breathing. Radiates to the back and into the arm and also notes pain down the side to the left hip region. She denies any significant cough or sputum. No fevers. No no new rashes. She recently took a long car ride to [place] for vacation. Last chemotherapy was last week . She notes that nothing seems to make the pain better or worse. Patient developed the pain in the left side of her body and the chest discomfort about the same time over this past weekend. Her pain is a 2-3 of constant ache with intermittent 6 out of 10 sharp and shooting pains in her neck and left arm leg and hip. She is recently had an echocardiogram that was normal. [facility] Medical History Breast cancer Hay fever History of removal of cervix but not uterus Home Medications escitalopram oxalate 10 mg tablet 10 mg DAILY 06/22/21 [History Last Taken 02/26/22] promethazine 25 mg tablet 25 mg PO Q6H PRN Nausea 01/22/22 [History Last Taken Unknown] anastrozole 1 mg tablet 1 mg PO DAILY 02/26/22 [History Last Taken 02/26/22] leuprolide 3.75 mg intramuscular syringe kit (Lupron Depot) mg IM 02/26/22 [History Last Taken 02/21/22] Allergy/AdvReac Type Severity Reaction Status Date / Time codeine Allergy Severe Swelling Verified 04/14/22 12:54 iodine Allergy Hives Verified 04/14/22 12:54 shellfish derived Allergy Hives Verified 04/14/22 12:54 Family History Other Cancer Heart disease Surgical History History of delivery Hx of lymph node excision Hx of mastectomy Social History Smoking Status: Never smoker alcohol intake: never EXAM Physical Exam Const Vital Signs: 04/14/22 12:51 04/14/22 13:38 04/14/22 15:44 Temperature 96.8 F L Temperature Source Temporal Pulse Rate 82 68 Respiratory Rate 18 18 Respiratory Effort Normal Blood Pressure 128/80 H 116/61 Blood Pressure Mean 96 79 Pulse Ox 95 93 Oxygen Delivery Method Room Air Room Air Positive well nourished, well developed and obese General Appearance ED: well developed Nutritional Appearance: obese HEENT Reports normocephalic, head/scalp atraumatic and moist mucous membranes Eyes PERRL and EOMs intact bilaterally Neck no lymphadenopathy, supple and no JVD Resp normal respiratory effort and clear to auscultation bilaterally Cardio regular rate, regular rhythm and no murmurs GI normal to inspection, nondistended, normoactive bowel sounds and non-tender Palpation: soft Back/Spine no CVA tenderness and normal ROM Extremity normal to inspection General Extremety ED: Negative for edema General Extremity: Negative for edema Neuro oriented x3 and CN's II-XII intact bilaterally Sensorium / Orientation: alert Motor Exam: strength 5/5 throughout Psych mental status grossly normal Mood & Affect: Negative for depressed or tearful Skin no rashes or lesions noted and no wounds MDM MDM MDM Narrative Medical decision making narrative: White count count 5.8. Platelet count of 100 hemoglobin 11.8. Troponin is 9. CTA chest demonstrates some atypical infiltrative-like changes in the right upper lobe. No obvious pulmonary embolism though the changes do obscure the distal pulmonary branches. However I do not see anything obvious on her CT. Patient does not have cough she does not have fever she does not have symptoms of pneumonia. I will write her antibiotics that should she develop symptoms she may fill the prescriptions and seek a repeat evaluation. Otherwise patient does not request any pain medication and she appears stable at this time. Lab Data Attestation: I reviewed the patient's lab results. Labs: Laboratory Results - last 24 hr 04/14/22 04/14/22 13:35 13:35 WBC 5.8 RBC 4.53 Hgb 11.8 L Hct 36.5 L MCV 80.6 L MCH 26.0 L MCHC 32.3 RDW Std Deviation 50.7 H RDW Coeff of Jenny 17.4 H Plt Count 100 L MPV 10.5 Immature Gran % (Auto) 0.700 Neut % (Auto) 70.4 H Lymph % (Auto) 11.9 L [place] % (Auto) 12.4 H Eos % (Auto) 4.1 Baso % (Auto) 0.5 Absolute Neuts (auto) 4.1 Absolute Lymphs (auto) 0.69 L Nucleated RBC % 0 Sodium 137 Potassium 3.4 L Chloride 103 Carbon Dioxide 29.0 Anion Gap 5 BUN 11 Creatinine 0.58 Estim Creat Clear Calc 111.38 Est GFR (MDRD) Af Amer 146 Est GFR (MDRD) Non-Af 121 BUN/Creatinine Ratio 19.0 Glucose 97 Calcium 9.6 Troponin I High Sens 9 Radiography Diagnostic Testing: Clinical Impression(s) from Imaging Studies Chest CTA 04/14/22 13:16 IMPRESSION: There is a right apical infiltrate suggesting a right upper lobe pneumonia. This obscures the distal pulmonary artery branches making it difficult to assess for PE. However, No demonstrated pulmonary embolism or arterial dissection. Electronically Signed: Chung Diallo MD at 15:46 EDT Reading Location ID and State: [facility] / [place] , Service support , EKG Initial EKG: Attestation: I personally reviewed and interpreted this EKG as follows: Comments: Normal sinus rhythm with a rate of 77 Discharge Plan Triage Chief Complaint: Chest Pain ED Provider: Brayden Lane Dx/Rx/DC Orders Clinical Impression: Chest pain, Metastatic breast cancer, Thrombocytopenia, Anemia Instructions: ED Chest Pain, Uncertain Cause Prescriptions: No Action escitalopram oxalate 10 mg tablet 10 mg DAILY Label Comments: take 1/2 tablet by mouth once daily for 1 week then INCREASE to 1 tablet once daily promethazine [Phenergan] 25 mg Tablet 25 mg PO Q6H PRN (Reason: Nausea) anastrozole 1 mg Tablet 1 mg PO DAILY Lupron Depot 3.75 mg Syringe Kit IM Label Comments: unsure of exact strength; gets IM injection once a month Primary Care Provider: Lui Simpson Referrals: Dwaine eB DO [Med Staff - Active Staff] - Keep Tosin appointment Lui Simpson MD [Primary Care Provider] - As Needed Disposition Disposition: Home, Self Care
[2022-04-14 13:43] LABS: Absolute Lymphocyte Count 0.69 X10^3/uL (0.83-4.51); Absolute Neutrophil Count 4.1 X10^3/uL (2.0-7.7); Basophil# 0.03 X10^3/uL; Basophil% 0.5 % (0-1); Eosinophil# 0.24 X10^3/uL; Eosinophils% 4.1 % (0-5); Hematocrit 36.5 % (37-47); Hemoglobin 11.8 g/dL (12.0-15.0); Lymphocyte # 0.69 X10^3/ul (0.83-4.51); Lymphocyte % 11.9 % (19-41); Mean Corp Hgb Conc 32.3 g/dL (32-36); Mean Corpuscular Volume 80.6 fL (81-99); Mean Platelet Vol. 10.5 fl (6.2-12.0); Monocyte# 0.72 X10^3/uL; Monocyte% 12.4 % (0-10); NRBC Flagged by Analyzer 0 % (0-5); Neutrophil # 4.07 X10^3/uL (2.7-7.7); Neutrophil % 70.4 % (47-70); Platelet Count 100 K/mm3 (150-450); RBC Distribution Width CV 17.4 % (11.6-14.6); RBC Distribution Width SD 50.7 fl (35.1-43.9); Red Blood Count 4.53 M/mm3 (4.2-5.4); White Blood Count 5.8 K/mm3 (4.4-11.0)
[2022-04-14] MEDS: MethylPREDNISolone 125 MG/2 ML Vial 60 MG IV (13:55)
[2022-04-14] MEDS: DiphenhydrAMINE 50 MG/ML Syringe 25 MG IV (13:55)
[2022-04-14 14:01] LABS: Anion Gap 5 (5-15); BUN 11 mg/dL (7-18); Calcium,Total 9.6 mg/dL (8.5-10.1); Chloride 103 mmol/L (98-107); Creatinine, Serum 0.58 mg/dL (0.55-1.02); EST Glomerular Filtration Rate 121 mL/min (>60); Est Glom Filt Rate - Afr Amer 146 mL/min (>60); Estimated Creatinine Clearance 111.38 ml/min; Glucose 97 mg/dL (74-106); Potassium 3.4 mmol/L (3.5-5.1); Sodium Level 137 mmol/L (136-145); Troponin-I HS 9 pg/mL (3.0-54.0)
[2022-04-14 15:44] VITALS: BP 116/61; PULSE 68; RESP 18; O2SAT 93
[2022-04-14 16:17] VITALS: O2SAT 97
== END 2022-04-14 16:19 | disposition home or self-care (01) ==
PROVIDERS: Emergency Provider Emergency Medicine; PCP Family Medicine; Visit Provider Emergency Medicine
DX: R07.89 Other chest pain (principal); Z68.41 Body mass index [BMI] 40.0-44.9, adult; D69.6 Thrombocytopenia, unspecified; C50.912 Malignant neoplasm of unspecified site of left female breast; Z79.899 Other long term (current) drug therapy; E66.9 Obesity, unspecified; D64.9 Anemia, unspecified
CPT/HCPCS: 36591; 71275; 80048; 84484; 85025; 93005; 96374; 96375; 99285; Q9967; A4216

== ENCOUNTER 2022-11-28 08:16 | Day surgery (SDC) | payer OTHER, SELFPAY ==
--- NOTE | 2022-11-19 12:50 | PCM.HP.BLA ---
History and Physical Date of Admission: 11/28/22 HPI: The patient is a 42 year old female presenting for pre-operative visit. She is scheduled for laparoscpic bilateral salpingoophorectomy, for h/o breast ca, need for surgical menopause on 11/28/22. Procedure discussed along with risks, benefits and complications. Other alternatives discussed for management. Consent form signed? Yes. ? ? PAST MEDICAL HISTORY PAST MEDICAL HISTORY Diagnosis Date ? Breast cancer (HCC) ? ? Breast mass, right 03/27/2021 ? Depressive disorder, not elsewhere classified ? ? Obesity ? ? Panic attack ? ? Papanicolaou smear of cervix with high grade squamous intraepithelial lesion (HGSIL) 09/14/2003 ? Papanicolaou smear of cervix with low grade squamous intraepithelial lesion (LGSIL) ? ? ? PAST SURGICAL HISTORY PAST SURGICAL HISTORY Procedure Laterality Date ? DELIVERY ONLY ? 09/14/2006 ? breech ? COLPOSCOPY CERVIX UPPR/ADJCNT VAGINA W/CERVIX BX ? 12/14/2003 ? lgsil ? CONIZATION CERVIX W/WO D&C RPR ELTRD EXC ? 01/13/2004 ? hgsil ? EXCISION BENIGN LESIONS,TRUNK, ? ? ? 1 Removed (pre-cancerous) ? INSJ TUNNELED CTR VAD W/SUBQ PORT AGE 5 YR/> ? 05/08/2021 ? LIG/TRNSXJ FLP TUBE ABDL/VAG APPR UNI/BI ? 09/14/2006 ? ? PAST SURGICAL HISTORY OF Right 10/29/2021 ? R mastectomy ? PCHG DESTRUCTION OF PREMALIGNANT LESIONS 16 OR MORE ? ? ? 3 Taken off Back ? UNSPECIFIED ORAL SURGERY PROCEDURE, BY REPORT ? ? ? [place] Teeth ? US GUIDED BREAST BIOPSY Right 04/10/2021 ? DrGuttman ? ? ? CURRENT MEDICATIONS Current Outpatient Medications Medication Sig Dispense Refill ? DULoxetine (CYMBALTA) 30 mg capsule take 1 capsule by mouth at bedtime 30 capsule 5 ? gabapentin (NEURONTIN) 300 mg capsule take 1 capsule by mouth twice a day 60 capsule 2 ? letrozole (FEMARA) 2.5 mg tablet Take 1 tablet by mouth once daily. 90 tablet 3 ? ferrous sulfate 325 mg (65 mg iron) tablet Take 325 mg by mouth once daily. ? ? ? ibuprofen (MOTRIN) 200 mg tablet Take 400 mg by mouth every 8 hours as needed. ? ? ? promethazine (PHENERGAN) 25 mg tablet Take 1 tablet by mouth every 6 hours as needed. FOR NAUSEA 30 tablet 2 ? Current Facility-Administered Medications Medication Dose Route Frequency Provider Last Rate Last Admin ? perflutren lipid microspheres 1.3 mL in NaCl (PF) 0.9% 10 mL injection (DEFINITY) INTRAVENOUS DIRECTED PRN Lesli Vallejo, ANIMAL SCIENTIST.EMBROIDERY SPECIALIST ? sodium chloride 0.9 % (flush) 10 mL (BD POSIFLUSH) 10 mL INTRAVENOUS DIRECTED PRN Lesli Vallejo, ANIMAL SCIENTIST.EMBROIDERY SPECIALIST ? perflutren lipid microspheres 1.3 mL in NaCl (PF) 0.9% 10 mL injection (DEFINITY) INTRAVENOUS DIRECTED PRN Lesli Vallejo, ANIMAL SCIENTIST.EMBROIDERY SPECIALIST ? sodium chloride 0.9 % (flush) 10 mL (BD POSIFLUSH) 10 mL INTRAVENOUS DIRECTED PRN Lesli Vallejo, ANIMAL SCIENTIST.EMBROIDERY SPECIALIST ? perflutren lipid microspheres 1.3 mL in NaCl (PF) 0.9% 10 mL injection (DEFINITY) INTRAVENOUS DIRECTED PRN Dwaine Be, DO ? sodium chloride 0.9 % (flush) 10 mL (BD POSIFLUSH) 10 mL INTRAVENOUS DIRECTED PRN Dwaine Be, DO ? ? ALLERGIES: Codeine, Iodine, Seasonal Allergies, and Shellfish ? PERSONAL HISTORY: SOCIAL HISTORY Social History ? Tobacco Use ? Smoking status: Never ? Smokeless tobacco: Never Vaping Use ? Vaping Use: Never used Substance Use Topics ? Alcohol use: Yes ? ? Alcohol/week: 0.0 standard drinks ? ? Comment: Occasionally ? Drug use: No ? FAMILY HISTORY: FAMILY HISTORY FAMILY HISTORY Problem Relation Age of Onset ? Hypertension Father ? ? Lipids Father ? ? Alcohol/Drug Mother ? ? alcohol ? other (bone cancer) Mother 61 ? Breast Cancer Mother 61 ? No Known Problems Brother ? ? No Known Problems Brother ? ? No Known Problems Brother ? ? Thyroid Maternal Grandmother ? ? Diabetes Paternal Grandfather ? ? Ischemic Heart Disease Paternal Grandfather ? ? Cancer Paternal Grandfather ? ? bladder ? Aneurysm Paternal Grandmother ? ? cerebral ? Colon Cancer Maternal great-grandmother ? ? Anesthesia Problems No Family History ? ? ? REVIEW OF SYMPTOMS: GENERAL: denies fevers or chills ENDOCRINOLOGY: has not been on steroids Cardiology : denies palpitations or chest pain Respiratory: denies SOB or cough Hematology: denies history of prolonged bleeding or easy bruising or VTE Allergy: Denies history of personal or family history of allergy to anesthesia ? PHYSICAL EXAMINATION: ? VITALS: Last menstrual period 05/15/2021. ? GENERAL: The patient is well nourished, well hydrated in no acute distress. , The patient is oriented to time, place, and person. NECK: Supple. No lynphadenopathy, normal thyroid, no thyromegaly. LUNGS: Clear to auscultation bilaterally. no wheezes, rhonchi or rales HEART: Regular rate and rhythm, Normal heart sounds, and No murmurs or gallops ? IMPRESSION: Estrogen/progesterone receptor + breast ca, need for surgical menopause ? PLAN: The risks/benefits/alternatives and personal involved for the planned laparopsopic bilateral salpingoophorectomy were reviewed with the patient. Her questions were answered to her satisfaction and she desires to proceed. Consent was signed. I reviewed with her postop instructions and expectations. ? ? I have reviewed and updated past medical and surgical history, medications and allergies Assessment & Plan Assessment/Plan (1) Carcinoma of breast, estrogen and progesterone receptor positive:
[2022-11-28] VITALS (17 sets, daily range): BP systolic 100–129; BP diastolic 59–82; PULSE 74–108; RESP 16–99; TEMP 36–36.6; O2SAT 83–100; BMI 43.6
[2022-11-28 09:05] LABS: Internal QC Validated? YES +Cl - CLEAR BKGD; Pregnancy, Urine Negative Negative
[2022-11-28] MEDS: Lactated Ringers 1,000 ML 15 ML IV (09:05)
[2022-11-28 09:06] LABS: Hematocrit 41.5 % (37-47); Hemoglobin 13.4 g/dL (12.0-15.0); Mean Corp Hgb Conc 32.3 g/dL (32-36); Mean Corpuscular Hgb 27.5 pg (27.0-32.0); Mean Corpuscular Volume 85.2 fL (81-99); Mean Platelet Vol. 9.9 fl (6.2-12.0); Platelet Count 114 K/mm3 (150-450); RBC Distribution Width CV 15.4 % (11.6-14.6); RBC Distribution Width SD 47.8 fl (35.1-43.9); Red Blood Count 4.87 M/mm3 (4.2-5.4); White Blood Count 6.4 K/mm3 (4.4-11.0)
[2022-11-28] MEDS: Ketorolac 30 MG/ML Syringe IV (09:06)
[2022-11-28] MEDS: Acetaminophen 500 MG Tablet 1000 MG PO (09:07)
--- NOTE | 2022-11-28 10:20 | FALS_PTH ---
PATIENT: COLT MATIAS [place] [facility] [place][id number] AGE/SX: 42/F ROOM: RE11/28/[address]: Dr. Bettie Palacio MD : 1980 BED: DIS: 11/28/2022 SPEC #: [id number] RECD: 11/28/22 14:12 STATUS: HOMAR RERonaldo #: [id number] MAGO: 11/28/22 10:[address]: Bettie Palacio DEPT: SURGICAL PATHOLOGY RECD BY: Sylwia Iyer ENTERED: 12/01/22 09:32 SP TYPE: FALL TUBES OTHR DR: Dr. Lui Simpson MD Tissues: A - Fallopian tube B - Fallopian tube Procedures: Surgery Specimen Level IV HEADER OPERATION: Laparoscopic salpingo-oophorectomy PRE-OP DIAGNOSIS: Carcinoma of breast, ER and ND positive TISSUE SUBMITTED: A ? Right fallopian tube and ovary, B ? Left fallopian tube and ovary MICROSCOPIC DIAGNOSIS A. Right fallopian tube and ovary, salpingo-oophorectomy: Right fallopian tube - no pathologic diagnosis. Right ovary ? benign simple epithelial cyst (0.4 cm in greatest dimension). Mesothelial inclusion cysts. Focal tubo-ovarian adhesions. B. Left fallopian tube and ovary, salpingo-oophorectomy: Left fallopian tube - no pathologic diagnosis. Left ovary ? benign epithelial cysts (1.0 cm in greatest dimension). Mesothelial inclusion cysts. Focal tubo-ovarian adhesions. SJ:ramón 12/02/2022 MICROSCOPIC DESCRIPTION Slides are reviewed. GROSS DESCRIPTION A - Received in fixative is one container labeled with the patient's name and designated right fallopian tube and ovary. The specimen consists of a fallopian tube and ovary. The fallopian tube measures 2.0 cm in length and 0.5 cm in diameter. It is adherent to the ovary. The ovary measures 2.5 x 2.0 x 1.4 cm. The fallopian tube shows fimbrial end. Sections of fallopian tube and ovary reveal unremarkable cut surfaces. The entire specimen is submitted in four cassettes. B - Received in fixative is one container labeled with the patient's name and designated left fallopian tube and ovary. The specimen consists of a fallopian tube and ovary. The fallopian tube measures 4.0 cm in length and 0.5 cm in diameter. The fimbrial end is identified. The fallopian tube is adherent to the ovary at the distal fimbrial end. The ovary measures 3.0 x 2.5 x 1.5 cm. Sections reveal two cysts each measuring 1.0 cm in greatest dimension. Coal Trimmer sections are submitted in four cassettes. Cassette 1 contains the fallopian tube. / RAMIN:ramón 12/01/2022 TC:5 CPT: 31219 x2
[2022-11-28] MEDS: Bupivacaine 0.25% 30 ML Vial (10:28)
--- NOTE | 2022-11-28 10:36 | DCINST_ITS ---
Discharge Instructions Diet Discharge Diet: Light diet - advance as tolerated Activity Discharge Activity: May Drive (in 2-3 days as tolerated), May Shower and May Take a Tub Bath (in 10 days) Return to work on:: 12/01/22 May resume sexual activity in: 1 week Dressing / Incision Call your doctor if your incision/area has: Continuous Slow Oozing, Sudden Increased Bleeding, Foul Smelling Discharge and Swelling at the incision site Call your doctor if you observe: Fever of 101 or Higher and Using more than 1 pad per hour Remove Dressing in: leave until fall off (YOur incision has skin glue it can get wet. Leave it on for 7-14 days) Cleanse incision/area with: Soap & Water Follow Up Care Please Follow Up With: Bettie Palacio MD When: 1-2 weeks as needed. If you are doing well and have no concerns you do not have to have a postop appointment. [phone]- Dr. Palacio's office. Test Results: Test results from this visit will be discussed in further detail at your follow- up appointment, if applicable. Discharge Plan Admission Primary Reason for Your Visit: Removal of ovaries and fallopian tubes Attending Provider: Bettie Palacio Primary Care Provider: Lui Simpson Discharge Orders/Prescriptions Prescriptions: New oxycodone 5 mg tablet 5 mg PO Q6H PRN PRN (Reason: severe pain) 7 Days Qty: 12 0RF Continued ferrous sulfate 325 mg (65 mg iron) Tablet 325 mg PO DAILY gabapentin 300 mg capsule 300 mg PO BID Label Comments: take 1 capsule by mouth twice a day letrozole 2.5 mg tablet 2.5 mg PO DAILY Label Comments: take 1 tablet by mouth once daily duloxetine 30 mg capsule,delayed release(DR/EC) 30 mg PO DAILY Referrals / Follow Up: Lui Simpson MD [Primary Care Provider] - Disposition Disposition (needs filled in before D/C Order can be placed): Home, Self Care
--- NOTE | 2022-11-28 11:27 | OP.PCM_ITS ---
Problems Associated Problem List Diagnoses (1) Carcinoma of breast, estrogen and progesterone receptor positive: (2) Surgical menopause: Report of Operation Date of Procedure: 11/28/22 Pre-Operative Diagnosis: estrogen receptor + breast ca, need for surgical menopause Post-Operative Diagnosis: same Surgery/Procedure Performed:: Laparoscopic bilateral salpingegoophrectomy Description of Surgical Findings:: normal cervix, vagina, u terus, tubes and ovaries Surgeon: Bettie Palacio environmental studies faculty member: Anna Wisdom environmental studies faculty member: Kaila Lorenzana Type of Anesthesia: General Anesthesiologist: Gopal Saldaña Special Medications: none Specimen's removed: bilateral tubes and ovaires Drains: none Estimated Blood Loss (mL): 10 Fluids Replaced: 900 Description of Procedure: The patient was taken to the operating room where she was prepped and draped in the dorsolithotomy position. A weighted speculum was placed in the vagina and the anterior lip of the cervix was grasped with a tenaculum. The Nguyen uterine manipulator was placed and the remainder of the instruments were removed from the vagina. Attention was turned to the abdomen. All port sites were infiltrated with 0.25% Marcaine before skin incisions were made. A 5 mm intraumbilical incision was made. The anterior abdominal wall was tented up with 2 towel clamps while a 5 mm blade less trocar and sleeve were directly inserted. Intraperitoneal placement was confirmed with the laparoscope. The pneumoperitoneum was created and the underlying abdominal contents were intact. The patient was placed in Trendelenburg. 5mm right and left lower quadrant ports were placed under direct visualization lateral to the inferior epigastric vessels. The bowel was swept away and the above findings were noted. Both ureters were identified before we sealed the infundibulopelvic ligaments. The right infundibulopelvic ligament was clamped, sealed and transected with the LigaSure device. The antimesenteric portions of the tube were clamped, sealed and transected. The utero-ovarian ligaments were clamped sealed and transected with the LigaSure device . The same procedure was performed on the contralateral side. The small amount of oozing on the left pedicles. Suction 7th grade social studies teacher was used to remove any clots. Small amount of oozing along the peritoneal edge was noted and this was clamped and sealed with the LigaSure device. The umbilical incision was stretched and an Endo Catch bag was placed through the incision. The specimens were placed in an bag and removed through the umbilical incision. The pedicles were again examined and found to be hemostatic. The umbilical port fascia was closed with 0 Vicryl suture. The lateral ports were removed under direct visualization and no active bleeding was noted. The pneumoperitoneum was released. The skin incisions were closed with Monocryl suture in a subcuticular fashion and skin glue by the RESOLUTION REP with me present in the operating suite.. The vaginal instruments were removed and the vaginal sweep was completed by me. The procedure was performed by me with assistance other than as dictated above. All sponge and needle counts were correct and the patient was taken to the recovery room in stable condition. Grafts/Implants Used: none Procedure Start Time: 10:48 Procedure Stop Time: 11:29 Complications none Admit VTE Documentation VTE Present on Admission: No VTE Mechan Device Prophylaxis: SCD's VTE Pharm Prophylaxis ordered?: No Reason prophylaxis not ordered:: Procedure Not Indicated
[2022-11-28] MEDS: Ipratropium/Albuterol Sulfate 3 ML AMPUL.NEB INHALATION (13:00)
--- NOTE | 2022-11-28 14:05 | SUR.PHASEI ---
WORKING WITH PATIENT TO USE INCENTIVE SPIROMETER TO HELP OPEN UP HER LUNGS.
--- NOTE | 2022-11-28 14:10 | RAD_ITS ---
EXAM: XR CHEST, 1 VIEW CLINICAL INDICATION: HYPOXIA TECHNIQUE: Frontal view of the chest. This report was created using [employer] report generation technology. COMPARISON: 01/22/2022 FINDINGS: LUNGS AND PLEURAL SPACES: Unremarkable. No consolidation or edema. No pneumothorax. No effusion. HEART: Unremarkable. Cardiac silhouette not enlarged. MEDIASTINUM: Central airways and mediastinal contour are unremarkable. BONES/JOINTS: Unremarkable. SOFT TISSUES: See below. VASCULATURE: There are multiple metallic clips in the right axilla. This is consistent for a prior axillary dissection. There are mastectomy changes noted with a right breast prosthesis. TUBES, LINES AND DEVICES: There is a left Port-A-Cath and/or mediport in place. The tip is in the atrium. RAD/Chest 1 View (Portable) IMPRESSION: No acute findings in the chest. Electronically Signed: Chung Diallo MD at 14:28 EDT Reading Location ID and State: [facility] / [place] , Service support ,
--- NOTE | 2022-11-28 15:17 | SUR.PHASEI ---
PATIENT STILL DROPS TO 85% ON ROOM AIR WHILE SLEEPING ONLY. CHEST XRAY CLEAR. USING I.S. DR. SCHMIDT SAID OK TO GO TO PHASE 2 ON 1 LITER OF O2.
== END 2022-11-28 16:22 | disposition home or self-care (01) ==
LOC: SDC 08:17 → AC 08:17
PROVIDERS: PCP Family Medicine; Referring Provider Obstetrics & Gynecology; Visit Provider Obstetrics & Gynecology
PROC: (CPT 58661; principal; 2022-11-28 10:05)
DX: C50.919 Malignant neoplasm of unspecified site of unspecified female breast (principal); Z17.0 Estrogen receptor positive status [ER+]; N83.291 Other ovarian cyst, right side; N83.292 Other ovarian cyst, left side; Z86.2 Personal history of diseases of the blood and blood-forming organs and certain disorders involving the immune mechanism; D64.9 Anemia, unspecified; Z79.899 Other long term (current) drug therapy
CPT/HCPCS: 58661; 00840; 71045; 81025; 85027; 88302; 88305; 94640; J7120; J2405

== ENCOUNTER 2022-12-01 12:24 | Emergency (ER) | payer OTHER, SELFPAY ==
[2022-12-01 12:25] VITALS: BP 125/86; PULSE 126; RESP 16; TEMP 36.3; O2SAT 95; BMI 42.7
--- NOTE | 2022-12-01 12:53 | CT_ITS ---
STUDY: CT ABDOMEN AND PELVIS WITH CONTRAST REASON FOR EXAM: Female, 42 years old. Post operative pain, nausea and vomiting. Diarrhea. Patient is recently post bilateral nephrectomy. RADIATION DOSAGE (If Supplied By Facility): CTDIvol = ( 16.96 ) mGy, DLP = ( 1421.06 ) mGycm TECHNIQUE: Transaxial images were obtained from the dome of the diaphragm to the symphysis pubis without oral contrast. IV 100mL Isovue-300 was administered. Sagittal and coronal images were reconstructed. Individualized dose optimization techniques were used for this CT. COMPARISON: Comparison is made with prior study dated January 22, 2022. FINDINGS: A right-sided breast prosthesis is seen. Mild degree of increased markings in the anterior aspect of the right middle lobe. This may represent postradiation fibrosis and/or early infiltrate. Tiny left pleural effusion with left basilar atelectasis and/or scarring. A dual-chamber pacemaker is visualized. There is decreased attenuation of the liver consistent with steatosis. Normal gallbladder and extrahepatic biliary system. There is mild splenomegaly. Small amount of the perisplenic fluid. Normal pancreas. Normal bilateral adrenal glands. Normal right kidney. Normal left kidney. Normal visualized stomach. Normal small intestine. There are multiple colonic diverticula consistent with diverticulosis. There is non-visualization of the appendix. Normal abdominal aorta. Normal inferior vena cava. Increased markings are seen within the root of the mesenteric fat. This is nonspecific. Normal urinary bladder. Small amount of free fluid is seen in the cul-de-sac. Postsurgical changes are seen in the region of the umbilicus most likely secondary to insertion of the trocar for laparoscopic surgery. Normal osseous structures. CT/Abdomen/Pelvis W IV Cont ONLY IMPRESSION: Increased markings are seen within the mesenteric fat at the level of the root of the mesentery. Splenomegaly. Mild degree of perisplenic fluid as well as fluid in the cul-de-sac. Increased markings at the lung bases. Electronically Signed: Major Smith MD at 14:29 EDT ,
--- NOTE | 2022-12-01 12:55 | EDS_ITS ---
HPI HPI - GI History of Present Illness Chief Complaint: GI Bleed Narrative Narrative: 42-year-old female past medical history of breast carcinoma is status post bilateral salpingo-oophorectomy laparoscopically by Dr. Palacio. She is postoperative day 3, stating that she had her surgery on Thursday afternoon. She presents because of nausea and vomiting along with diarrhea that she has had over the weekend. She states that her abdominal pain and bloating has intensified. She was vomiting black to brown coffee colored emesis. She does not take a blood thinner. She states that she is also having small amounts of diarrhea. She feels her abdomen is more distended. She states she talked to the policy change clerks supervisor/nurse practitioner over the weekend, then to Dr. Palacio, and was prescribed Phenergan suppositories which were ineffective in treating her nausea and vomiting. She presents because of the abdominal pain, nausea, vomiting, and states that the pain in her abdomen is getting worse. [facility] Medical History (Updated 12/01/22 @ 15:27 by Mohamud Galarza MD) Anemia Breast cancer Cancer Chemotherapy management, encounter for Easy bruising Excessive bleeding Hay fever History of echocardiogram History of removal of cervix but not uterus Non-smoker Wears dentures Wears glasses Home Medications duloxetine 30 mg capsule,delayed release 30 mg PO DAILY 11/21/22 [History Last Taken Unknown] ferrous sulfate 325 mg (65 mg iron) tablet 325 mg PO DAILY 11/21/22 [History Last Taken Unknown] gabapentin 300 mg capsule 300 mg PO BID 11/21/22 [History Last Taken 11/28/22] letrozole 2.5 mg tablet 2.5 mg PO DAILY 11/21/22 [History Last Taken Unknown] oxycodone 5 mg tablet 5 mg PO Q6H PRN PRN severe pain 7 days #12 TABLETS 11/28/22 [Rx Last Taken Unknown] ondansetron 4 mg disintegrating tablet 4 mg PO Q6H PRN nausea and vomiting #20 tabs 12/01/22 [Rx Last Taken Unknown] promethazine 25 mg rectal suppository (Promethegan) 25 mg NJ Q6H PRN Nausea 12/01/22 [History Last Taken Unknown] Allergy/AdvReac Type Severity Reaction Status Date / Time codeine Allergy Severe Swelling Verified 12/01/22 12:29 iodine Allergy Hives Verified 12/01/22 12:29 shellfish derived Allergy Hives Verified 12/01/22 12:29 Family History Other Cancer Heart disease Surgical History (Updated 12/01/22 @ 13:30 by Yaritza Oconnor) History of delivery History of removal of both ovaries Hx of lymph node excision Hx of mastectomy Status post surgical removal of both fallopian tubes Social History Smoking Status: Never smoker alcohol intake: never ROS ROS ED ROS Narrative Constitutional: No fever, no chills. HEENT: No sore throat. No neck pain. No loss of vision. No rhinorrhea. Cardiovascular: No chest pain. No palpitations. No pedal edema. Respiratory: No cough, no shortness of breath. Abdominal: Positive diffuse abdominal pain. Positive abdominal distention, multiple episodes of nausea, vomiting, and diarrhea without jose eduardo hematemesis, but dark-colored emesis/coffee-ground. Genitourinary: No dysuria. No hematuria. Musculoskeletal: No myalgias. No arthralgias. Neurologic: No headaches. No dizziness. No lightheadedness. Skin: No rash. No change in color. Psychiatric: No depression. No anxiety. EXAM Physical Exam Narrative Exam Narrative: Afebrile. Vital signs noted. HEENT: Normocephalic. Atraumatic. PERRL, EOMI. Neck soft and supple. No point tenderness or step off. Cardiovascular: Positive tachycardia no murmurs, rubs, or gallops appreciated. Respiratory: No tachypnea. Lungs clear to auscultation bilaterally. Gastrointestinal: Abdomen soft, mild diffuse tenderness with mild to moderate distention, with decreased bowel sounds. No rebound or guarding. Neurological: Awake. Alert. Nonfocal, nonlateralizing. Skin: No rash. Normal color. No pallor. Musculoskeletal: No pedal edema. Full range of motion extremities. Const Vital Signs: 12/01/22 12:25 Temperature 97.4 F L Temperature Source Temporal Pulse Rate 126 H Respiratory Rate 16 Blood Pressure 125/86 H Blood Pressure Mean 99 Pulse Ox 95 Oxygen Delivery Method Room Air MDM MDM MDM Narrative Medical decision making narrative: In the differential diagnosis is dehydration with her nausea, vomiting, and diarrhea. She could be having postoperative abdominal pain and distention from insufflation, but there is also concern for bowel obstruction given her recent surgery. She was bolused normal saline 1 L intravenously. Additionally she was given fentanyl for analgesia along with Zofran 4 mg intravenously. I do feel that CT imaging is indicated. However, she states that she has an allergy to iodine and shellfish. However, she has had CT with IV contrast previously and she states that they gave her Benadryl an hour before. She did not require steroids. Additionally, I am hesitant to give her steroids as she is recently postoperative. I reviewed her laboratory work, CBC shows normal white count of 7.2, hemoglobin normal at 12.9, hematocrit 39.7. She is mildly thrombocytopenic with a platelet count of 116 which I think is nonspecific. Sodium slightly low at 134 with a BUN of 16 and a normal creatinine of 0.62. Potassium normal at 3.7. Her glucose is appropriately elevated at 91. Normal anion gap of 8. LFTs are grossly unremarkable except for albumin slightly low at 2.6. Urinalysis shows 15 ketones but no evidence of infection, I do not feel antibiotics are indicated. Additionally, there has been no vomiting here in the ED so I do not feel that NG tube is indicated. I reviewed the CT imaging. I reviewed the CT radiology report which shows some nonspecific postsurgical changes and fluid near the splenic flexure, but no evidence of acute obstruction. There are increased markings in the mesenteric fat which is nonspecific. At this point in time, after fentanyl, she feels improved. I discussed patient with Dr. Garcia for Dr. Palacio who agrees with outpatient follow-up. I will write her prescription for Zofran as her Phenergan suppositories were ineffective. I feel she be discharged safely home with follow-up. Return instructions to the emergency department were reviewed. Disposition is discharged home in stable condition. History & Record Review Discussion w/independent historian: Family Additional record(s) reviewed:: Prior outpatient record and Prior ED visit Lab Data Attestation: I reviewed the patient's lab results. Labs: Laboratory Results - last 24 hr 12/01/22 12/01/22 12/01/22 13:02 13:02 13:27 WBC 7.2 RBC 4.73 Hgb 12.9 Hct 39.7 MCV 83.9 MCH 27.3 MCHC 32.5 RDW Std Deviation 46.7 H RDW Coeff of Jenny 15.3 H Plt Count 116 L MPV 10.4 Immature Gran % (Auto) 0.100 Neut % (Auto) 69.5 Lymph % (Auto) 17.7 L [place] % (Auto) 11.9 H Eos % (Auto) 0.7 Baso % (Auto) 0.1 Absolute Neuts (auto) 5.0 Absolute Lymphs (auto) 1.28 Nucleated RBC % 0 Sodium 134 L Potassium 3.7 Chloride 100 Carbon Dioxide 26.0 Anion Gap 8 BUN 16 Creatinine 0.62 Estim Creat Clear Calc 104.19 Est GFR (MDRD) Af Amer 135 Est GFR (MDRD) Non-Af 112 BUN/Creatinine Ratio 26.0 H Glucose 91 Calcium 8.9 Total Bilirubin 2.20 H AST 30 ALT 24 Alkaline Phosphatase 103 Total Protein 7.1 Albumin 2.6 L Globulin 4.5 H Albumin/Globulin Ratio 0.6 L Lipase 33 L Urine Color Yellow Urine Clarity Clear Urine pH 5.0 Ur Specific [place] 1.015 Urine Protein 30 H Urine Glucose (UA) Normal Urine Ketones 15 H Urine Occult Blood 50 H Urine Nitrite Negative Urine Bilirubin 1 H Urine Urobilinogen 4 H Ur Leukocyte Esterase 25 H Urine RBC 0-5 SEEN Urine WBC 0-5 SEEN Ur Squamous Epith Cells 0-5 SEEN Urine Bacteria 1+ Urine Mucus 1+ Radiography Diagnostic Testing: Clinical Impression(s) from Imaging Studies Abdomen/Pelvis CT 12/01/22 12:53 IMPRESSION: Increased markings are seen within the mesenteric fat at the level of the root of the mesentery. Splenomegaly. Mild degree of perisplenic fluid as well as fluid in the cul-de-sac. Increased markings at the lung bases. Electronically Signed: Major Smith MD at 14:29 EDT , Discharge Plan Triage Chief Complaint: GI Bleed ED Provider: Mohamud Galarza Dx/Rx/DC Orders Clinical Impression: Nausea vomiting and diarrhea, Postoperative abdominal pain Instructions: ED Abdominal Pain Unkn Cause Fem, ED Vomiting and Diarrhea ... Prescriptions: New ondansetron 4 mg tablet,disintegrating 4 mg PO Q6H PRN (Reason: nausea and vomiting) Qty: 20 0RF No Action ferrous sulfate 325 mg (65 mg iron) Tablet 325 mg PO DAILY gabapentin 300 mg capsule 300 mg PO BID Label Comments: take 1 capsule by mouth twice a day letrozole 2.5 mg tablet 2.5 mg PO DAILY Label Comments: take 1 tablet by mouth once daily duloxetine 30 mg capsule,delayed release(DR/EC) 30 mg PO DAILY oxycodone 5 mg tablet 5 mg PO Q6H PRN PRN (Reason: severe pain) 7 Days Qty: 12 0RF promethazine [Promethegan] 25 mg suppository 25 mg NJ Q6H PRN (Reason: Nausea) Primary Care Provider: Lui Simpson Referrals: Bettie Palacio MD [Med Staff - Active Staff] - 1-2 Days if not improving Lui Simpson MD [Primary Care Provider] - Disposition Disposition: Home, Self Care
[2022-12-01 13:16] LABS: Absolute Lymphocyte Count 1.28 X10^3/uL (0.83-4.51); Basophil# 0.01 X10^3/uL; Basophil% 0.1 % (0-1); Eosinophil# 0.05 X10^3/uL; Eosinophils% 0.7 % (0-5); Hematocrit 39.7 % (37-47); Hemoglobin 12.9 g/dL (12.0-15.0); Lymphocyte # 1.28 X10^3/ul (0.83-4.51); Lymphocyte % 17.7 % (19-41); Mean Corp Hgb Conc 32.5 g/dL (32-36); Mean Corpuscular Hgb 27.3 pg (27.0-32.0); Mean Corpuscular Volume 83.9 fL (81-99); Mean Platelet Vol. 10.4 fl (6.2-12.0); Monocyte# 0.86 X10^3/uL; Monocyte% 11.9 % (0-10); NRBC Flagged by Analyzer 0 % (0-5); Neutrophil # 5.02 X10^3/uL (2.7-7.7); Neutrophil % 69.5 % (47-70); Platelet Count 116 K/mm3 (150-450); RBC Distribution Width CV 15.3 % (11.6-14.6); RBC Distribution Width SD 46.7 fl (35.1-43.9); Red Blood Count 4.73 M/mm3 (4.2-5.4); White Blood Count 7.2 K/mm3 (4.4-11.0)
[2022-12-01] MEDS: fentaNYL 100 MCG/2 ML Ampul 50 MCG IV (13:22)
[2022-12-01] MEDS: 0.9% Normal Saline 1,000 ML 999 ML IV (13:22)
[2022-12-01] MEDS: DiphenhydrAMINE 50 MG/ML Syringe IV (13:23)
[2022-12-01] MEDS: Ondansetron 4 MG/2 ML Vial IV (13:23)
[2022-12-01 13:33] LABS: ALB/GLOB Ratio 0.6 RATIO (0.9-2.4); AST(SGOT) 30 U/L (15-37); Alanine Aminotransfer ALT/SGPT 24 U/L (13-56); Albumin, Serum 2.6 g/dL (3.2-5.0); Alkaline Phosphatase 103 U/L (45-117); Anion Gap 8 (5-15); BUN 16 mg/dL (7-18); Calcium,Total 8.9 mg/dL (8.5-10.1); Chloride 100 mmol/L (98-107); Creatinine, Serum 0.62 mg/dL (0.55-1.02); EST Glomerular Filtration Rate 112 mL/min (>60); Est Glom Filt Rate - Afr Amer 135 mL/min (>60); Estimated Creatinine Clearance 104.19 ml/min; Globulin 4.5 g/dL (2.2-4.2); Glucose 91 mg/dL (74-106); Lipase 33 U/L (73-393); Potassium 3.7 mmol/L (3.5-5.1); Protein, Total 7.1 g/dL (6.4-8.2); Sodium Level 134 mmol/L (136-145)
[2022-12-01 13:34] LABS: Color, Urine Yellow (Yellow); Glucose, Dipstick Normal (Normal); Ketone-Dipstick 15 mg/dl (Negative); Leukocyte Esterase-Dipstick 25 /ul (Negative); Nitrite-Dipstick Negative (Negative); Occult Blood-Urine 50 /ul (Negative); Protein-Dipstick 30 mg/dl (Negative); Specific Gravity, Urine 1.015 (1.002-1.030); Urine Clarity Clear (Clear); Urine Urobilinogen 4 mg/dl (Normal)
[2022-12-01 13:51] LABS: Urine Bilirubin Dipstick 1 mg/dL (Negative)
[2022-12-01 13:55] LABS: Bacteria 1+ /hpf (None Seen); Mucous, Urine 1+ /hpf (<or=2+); Red Blood Cells-Urine 0-5 SEEN /hpf (0-5); Squamous Epithelial Cells - UA 0-5 SEEN /hpf (5-10); White Blood Cells 0-5 SEEN /hpf (0-5)
== END 2022-12-01 15:39 | disposition home or self-care (01) ==
PROVIDERS: Emergency Provider Emergency Medicine; PCP Family Medicine; Visit Provider Emergency Medicine
DX: Z98.890 Other specified postprocedural states (principal); R11.2 Nausea with vomiting, unspecified; R19.7 Diarrhea, unspecified; Z85.3 Personal history of malignant neoplasm of breast; Z90.722 Acquired absence of ovaries, bilateral; Z79.811 Long term (current) use of aromatase inhibitors
CPT/HCPCS: 74177; 80053; 81001; 83690; 85025; 96374; 96375; 99282; J7030; Q9967; A4216; J2405

== ENCOUNTER → 2023-03-16 | Outpatient (CLI) | payer OTHER, SELFPAY ==
--- NOTE | 2023-03-16 16:00 | PET_ITS ---
EXAMINATION: FDG PET/CT INDICATIONS: 42-year-old female with a history of primary right breast carcinoma, presenting for restaging examination. COMPARISON EXAMINATION: None available INDEX LESION SIZE SUV INTERPRETATION Right chest wall 10.7 mm 2.5 Fulfills quantitative criteria for viable neoplasm, histopathological analysis should be considered ? Right anterolateral chest wall adjacent to breast prosthesis ? 1.4 Quantitative criteria for viable neoplasm are not fulfilled ? Spleen, splenomegaly 15.2 cm SUV < hepatic reference Low likelihood of viable neoplasm. TECHNIQUE: Following the intravenous administration of 14.79 mCi of F-18 deoxyglucose via the right hand, multiplanar image acquisitions of the head, neck, chest, abdomen and pelvis to the level of the midthigh, obtained at one-hour post radiopharmaceutical administration contemporaneously interpreted with the current CT of the chest, abdomen and pelvis dated 03/16/2023 via coregistration reveal: SERUM GLUCOSE LEVEL: 108 mg/dL HEIGHT: 65 inches WEIGHT: 264 pounds FINDINGS: HEAD/NECK: There is no evidence of abnormal increased glucose metabolism in the pharyngeal mucosal space, parapharyngeal space, oropharynx, bilateral-lateral and anterior neck, hypopharynx and distribution of the larynx. The visualized portion of the cerebral cortical-subcortical structures demonstrate symmetric and preserved glucose metabolism. CHEST: There is an increase in FDG concentration noted in the right anterior chest wall adjacent to the breast prosthesis. The calculated maximum standard uptake value is 2.5. The maximal axial diameter of the metabolic, morphologic abnormality is 10.7 mm. The left ventricular myocardium visualization is consistent with the fed state. CT of the chest demonstrates the following anatomic characteristics: Port-A-Cath. Coronary artery calcification is observed. The right breast operations intelligence prosthesis is defined. Surgical clip placement is noted in the right axilla. Left axillary soft tissue densities are nonglucose avid. An additional focus of increased uptake is noted in the right lateral chest wall adjacent to the breast prosthesis with a calculated standard uptake value of 1.4. Quantitative criteria for viable neoplasm are not fulfilled. ABDOMEN/PELVIS: Normal physiologic distribution of the radiopharmaceutical is identified in the hepatic (5.6) and splenic parenchyma, both renal units, urinary bladder, and visualized intestinal tract. CT of the abdomen and pelvis is remarkable for the following: Right and left subcentimeter inguinal soft tissue densities are ametabolic. The spleen is prominent in size with the calculated standard uptake value less than the hepatic reference. The maximal axial diameter of the spleen is 15.2 cm. SKELETAL: There is no evidence of quantitatively significant enhanced glucose metabolism on meticulous inspection of the appendicular and axial skeletal structures. Degenerative changes defined in the thoracic and lumbar spine demonstrate no evidence of increased glucose metabolism. There are no sclerotic, mixed sclerotic-lytic, or primarily lytic changes defined in the axial skeletal structures with evidence of increased FDG uptake. PET/PET/CT Tumor Base -Thigh Subs IMPRESSION: 1. The increase in radiopharmaceutical concentration defined in the right anterior chest wall adjacent to the breast prosthesis fulfills quantitative criteria for viable neoplasm with single-point technique. Histopathologic analysis should be considered. A second right anterior lateral chest wall hypermetabolic focus does not fulfill quantitative criteria for malignant transformation. 2. There is evidence of splenomegaly without metabolic scintigraphic evidence of splenic neoplastic concentration (Marnie et al., Journal of Nuclear Medicine 44:1072, 2004). Electronic Signature Joselito Santos D.O. Accurate Quantification of SUVs for this report are calculated using the exclusive [employer] Technology. ([place]. Patent No. [id number] B2 [phone] [place] patent [phone]). Standardization and correction of the FDG SUV metric via [employer] technology allow for vendor non-specific objective quantitative examination comparison and optimization of the sensitivity and specificity of the FDG PET-CT examination. Electronically Signed: Joselito Santos, at 16:31 EDT ,
== END | disposition home or self-care (01) ==
LOC: ONC 16:00
PROVIDERS: PCP Family Medicine; Referring Provider Nurse Practitioner; Visit Provider Nurse Practitioner
DX: C50.111 Malignant neoplasm of central portion of right female breast (principal); C77.3 Secondary and unspecified malignant neoplasm of axilla and upper limb lymph nodes; C50.911 Malignant neoplasm of unspecified site of right female breast; Z17.0 Estrogen receptor positive status [ER+]; Z91.041 Radiographic dye allergy status
CPT/HCPCS: 78815; A9552

== ENCOUNTER 2023-07-09 09:05 | Emergency (ER) | payer OTHER, SELFPAY ==
[2023-07-09 09:06] VITALS: BP 163/96; PULSE 94; RESP 18; TEMP 36.4; O2SAT 99; BMI 45.2
--- NOTE | 2023-07-09 09:09 | ED.VIS.DYS ---
HPI History of Present Illness Chief Complaint: Shortness of Breath PFSH PFSH Medical History Anemia Breast cancer Cancer Carcinoma of breast, estrogen and progesterone receptor positive Chemotherapy management, encounter for Easy bruising Excessive bleeding Hay fever History of echocardiogram History of removal of cervix but not uterus Non-smoker Wears dentures Wears glasses Home Medications duloxetine 30 mg capsule,delayed release 30 mg PO DAILY 11/21/22 [History Last Taken Unknown] ferrous sulfate 325 mg (65 mg iron) tablet 325 mg PO DAILY 11/21/22 [History Last Taken Unknown] gabapentin 300 mg capsule 300 mg PO BID 11/21/22 [History Last Taken 11/28/22] letrozole 2.5 mg tablet 2.5 mg PO DAILY 11/21/22 [History Last Taken Unknown] oxycodone 5 mg tablet 5 mg PO Q6H PRN PRN severe pain 7 days #12 TABLETS 11/28/22 [Rx Last Taken Unknown] ondansetron 4 mg disintegrating tablet 4 mg PO Q6H PRN nausea and vomiting #20 tabs 12/01/22 [Rx Last Taken Unknown] promethazine 25 mg rectal suppository (Promethegan) 25 mg [place] Q6H PRN Nausea 12/01/22 [History Last Taken Unknown] Allergy/AdvReac Type Severity Reaction Status Date / Time codeine Allergy Severe Swelling Verified 12/01/22 12:29 iodine Allergy Hives Verified 12/01/22 12:29 shellfish derived Allergy Hives Verified 12/01/22 12:29 Family History Other Cancer Heart disease Surgical History History of delivery History of removal of both ovaries Hx of lymph node excision Hx of mastectomy Status post surgical removal of both fallopian tubes Social History Smoking Status: Never smoker alcohol intake: never EXAM Physical Exam Narrative Exam Narrative: HISTORY OF PRESENT ILLNESS: 43-year-old female here with concern for shortness of breath elevated D-dimer. Notes 5 days of upper respiratory tract symptoms including congestion, cough. Denies fever. Notes chest pain is worse with cough and taking a deep breath. States she is currently undergoing oral chemotherapy. Denies any other PE risk factors such as unilateral leg swelling, hemoptysis. No syncope. No bleeding diathesis. REVIEW OF SYSTEMS: Pertinent positives: Shortness of breath, chest pain, cough Pertinent negatives: Lower extremity edema, unilateral leg swelling PHYSICAL EXAM: Nursing triage notes reviewed, Vital signs reviewed Constitutional: please see mdm HENT: MMM Eyes: Pupils equal round and reactive to light, Extraocular muscles intact Neck: No stridor, no JVD, full neck ROM Lungs: Coarse breath sounds throughout, worse on the left, crackles/rales on the left. No increased work of breathing, no conversational dyspnea, no accessory muscle use, no nasal flaring. No respiratory distress noted Heart: Regular rate and rhythm, No murmurs, No rubs and No gallops, 2+ distal pulses (radial, femoral, posterior tibial) in all extremities Abdomen: Soft, there is no tenderness, rigidity, rebound or guarding, no obvious peritoneal signs, no palpable pulsatile abdominal masses, no auscultated abdominal bruit : No CVAT Extremities: No edema Neuro: No focal neurological deficits, cranial nerves II through XII intact, 5/5 strength in all extremities. Intact sensation to light touch in all extremities, 2+ reflexes bilateral patella tendons. Normal gait. No ataxia. Skin: No rash or lesions noted MEDICAL DECISION MAKING: Chief Complaint: Shortness of breath, elevated D-dimer External records reviewed: Last ED visit in November 2022 for nausea vomiting diarrhea Factors affecting care: n breast cancer Social determinants of health: none History obtained from others: Consults: Oncology (Dr. Be) [facility] Narrative: Patient was hemodynamically stable, afebrile, nontoxic-appearing I considered the following differential diagnosis: COVID, flu, pneumonia PE, ALL IMAGES (IF OBTAINED) HAVE BEEN PERSONALLY REVIEWED AND INTERPRETED BY MYSELF. EKG with normal sinus rhythm, normal axis, normal normals, no STEMI The patient and/or family, caregivers express understanding. The patient and/or family, caregivers agrees with the plan. Shared decision making: I will have a discussion with the patient and or visitors regarding risk/benefits of further testing or admission. They will be made aware of of the risk/benefits inherent in this decision they will be given the opportunity to voice understanding. Total critical care time today provided was at least 0 [] minutes. This excludes separately billable procedures. Critical care time (if documented) is secondary to the patient having high probability of clinically significant/life threatening deterioration in the patient's condition which required my urgent intervention. Impression: 1. Cough 2. Chest pain 3. Elevated D-dimer 4. History of cancer Dispo: [] Const Vital Signs: 07/09/23 09:06 07/09/23 09:19 07/09/23 09:19 Temperature 97.5 F L Temperature Source Temporal Pulse Rate 94 Respiratory Rate 18 Respiratory Effort Normal Respiratory Depth Normal Respiratory Pattern Normal Blood Pressure 163/96 H Blood Pressure Mean 118 Pulse Ox 99 Oxygen Delivery Method Room Air Room Air [facility] Narrative Medical decision making narrative: HISTORY OF PRESENT ILLNESS: 43-year-old female here with concern for cough, fever and shortness of breath and elevated D-dimer as an outpatient. Notes 5 days of cough, congestion and feeling unwell. Notes she recently started oral antibiotics. Denies any PE risk factors other than history of cancer REVIEW OF SYSTEMS: Pertinent positives: CP, SOB, cough Pertinent negatives: syncope, unilateral leg swelling PHYSICAL EXAM: Nursing triage notes reviewed, Vital signs reviewed Constitutional: please see mdm HENT: MMM Eyes: Pupils equal round and reactive to light, Extraocular muscles intact Neck: No stridor, no JVD, full neck ROM Lungs:/Rales on left greater than right no increased work of breathing, no conversational dyspnea, no accessory muscle use, no nasal flaring. No respiratory distress noted Heart: Regular rate and rhythm, No murmurs, No rubs and No gallops, 2+ distal pulses (radial, femoral, posterior tibial) in all extremities Abdomen: Soft, there is no tenderness, rigidity, rebound or guarding, no obvious peritoneal signs, no palpable pulsatile abdominal masses, no auscultated abdominal bruit : No CVAT Extremities: No edema Neuro: No focal neurological deficits, cranial nerves II through XII intact, 5/5 strength in all extremities. Intact sensation to light touch in all extremities, 2+ reflexes bilateral patella tendons. Normal gait. No ataxia. Skin: No rash or lesions noted MEDICAL DECISION MAKING: Chief Complaint: SOB, CP External records reviewed: No recent ED visits Factors affecting care: Breast cancer Social determinants of health: none History obtained from others: none Consults: Oncology Dr. Be [facility] Narrative: Was hemodynamically stable, afebrile, nontoxic-appearing. Exam with noted left-sided asymmetry and breath sounds concerning for focal consolidative process I considered the following differential diagnosis: PE, pneumonia, COVID And a broad lab and imaging work-up to further elucidate etiology patient complaints ALL IMAGES (IF OBTAINED) HAVE BEEN PERSONALLY REVIEWED AND INTERPRETED BY MYSELF. EKG with normal sinus rhythm, normal axis, intervals, no STEMI, no right heart strain Troponin is negative, no evidence of myocardial ischemia CBC with no significant leukocytosis, mild anemia, noted thrombocytopenia BMP without evidence of significant electrolyte abnormalities, no anion gap, no acute kidney injury. Troponin is negative, no evidence of myocardial ischemia BNP within normal limits CTA shows no evidence of PE pneumonia shows evidence of radiation pneumonitis The patient and/or family, caregivers express understanding. The patient and/or family, caregivers agrees with the plan. Shared decision making: I will have a discussion with the patient and or visitors regarding risk/benefits of further testing or admission. They will be made aware of of the risk/benefits inherent in this decision they will be given the opportunity to voice understanding. Total critical care time today provided was at least 0 minutes. This excludes separately billable procedures. Critical care time (if documented) is secondary to the patient having high probability of clinically significant/life threatening deterioration in the patient's condition which required my urgent intervention. Impression: 1. Cough 2. Elevated D-dimer 3. History of breast cancer 4. Viral URI Dispo: Discharge home Lab Data Labs: Laboratory Results - last 24 hr 07/09/23 09:37 WBC 3.5 L RBC 4.38 Hgb 11.2 L Hct 35.8 L MCV 81.7 MCH 25.6 L MCHC 31.3 L RDW Std Deviation 40.4 RDW Coeff of Jenny 13.5 Plt Count 79 L MPV 10.5 Immature Gran % (Auto) 0.300 Neut % (Auto) 59.1 Lymph % (Auto) 22.6 Rutherford % (Auto) 9.7 Eos % (Auto) 8.0 H Baso % (Auto) 0.3 Absolute Neuts (auto) 2.1 Absolute Lymphs (auto) 0.79 L Nucleated RBC % 0 Differential Comment SCANNED Platelet Estimate MOD DEC Sodium 142 Potassium 3.7 Chloride 108 H Carbon Dioxide 29.0 Anion Gap 5 BUN 10 Creatinine 0.62 Estim Creat Clear Calc 103.11 Est GFR (MDRD) Af Amer 134 Est GFR (MDRD) Non-Af 111 BUN/Creatinine Ratio 16.2 Glucose 105 Calcium 8.7 Troponin I High Sens 5 B-Natriuretic Peptide 14.6 Radiography Diagnostic Testing: Clinical Impression(s) from Imaging Studies Chest CTA 07/09/23 09:19 IMPRESSION: No evidence of pulmonary embolism. Findings suggestive of post radiation scarring in the right upper lobe and right middle lobe as described with evidence of bronchiectasis. Electronically Signed: Major Smith MD at 11:11 EDT , Discharge Plan Triage Chief Complaint: Shortness of Breath ED Provider: Riaz Cesar Dx/Rx/DC Orders Prescriptions: No Action ferrous sulfate 325 mg (65 mg iron) Tablet 325 mg PO DAILY gabapentin 300 mg capsule 300 mg PO BID Patient Comments: take 1 capsule by mouth twice a day letrozole 2.5 mg tablet 2.5 mg PO DAILY Patient Comments: take 1 tablet by mouth once daily duloxetine 30 mg capsule,delayed release(DR/EC) 30 mg PO DAILY oxycodone 5 mg tablet 5 mg PO Q6H PRN PRN (Reason: severe pain) 7 Days Qty: 12 0RF promethazine [Promethegan] 25 mg suppository 25 mg IL Q6H PRN (Reason: Nausea) ondansetron 4 mg tablet,disintegrating 4 mg PO Q6H PRN (Reason: nausea and vomiting) Qty: 20 0RF Primary Care Provider: Lui Simpson Referrals: Lui Simpson MD [Primary Care Provider] -
--- NOTE | 2023-07-09 09:19 | CT_ITS ---
STUDY: CTA CHEST REASON FOR EXAM: Female, 43 years old. CP elevated d-dimer. Shortness of breath. History of breast cancer. RADIATION DOSAGE (If Supplied By Facility): CTDIvol = ( 13.53 ) mGy, DLP = ( 486.66 ) mGycm TECHNIQUE: The examination was performed with the intravenous administration of IV 100mL Isovue-370. Post-processing of the angiographic images was performed, with multiplanar reformation and 3D reconstruction. Individualized dose optimization techniques were used for this CT. COMPARISON: Comparison is made with prior study of April 14, 2022. FINDINGS: The patient is status post right mastectomy and right axillary node dissection. The previously seen right breast implant has been removed. Normal enhancement of the main pulmonary artery and right and left pulmonary arteries. Normal enhancement of the bilateral peripheral pulmonary arteries. There is no demonstrated pulmonary embolism. Normal thoracic aorta and visualized great vessels. There is no demonstrated aortic dissection. Normal heart and pericardium. Normal mediastinum. Normal hilar regions. Normal visualized trachea and bronchi. The lungs are well expanded. Irregular linear scarring in the anterior aspect of the right upper lobe with focal bronchiectasis suggestive of postoperative radiation/pneumonitis. Minimal volume loss. There is also evidence of a heterogeneous linear density in the anterior aspect of the right middle lobe most likely secondary to post radiation changes. This as improved as compared to prior study. Normal pleura. Normal chest wall structures. There are degenerative changes of thoracic spine. Splenomegaly. CT/CTA Chest W/WO Contrast IMPRESSION: No evidence of pulmonary embolism. Findings suggestive of post radiation scarring in the right upper lobe and right middle lobe as described with evidence of bronchiectasis. Electronically Signed: Major Smith MD at 11:11 EDT ,
[2023-07-09] MEDS: 0.9% Normal Saline (500mL Bag) 500 ML 999 ML IV (09:39)
[2023-07-09] MEDS: DiphenhydrAMINE 50 MG/ML Syringe IV (09:39)
[2023-07-09 10:03] LABS: Absolute Lymphocyte Count 0.79 X10^3/uL (0.83-4.51); Absolute Neutrophil Count 2.1 X10^3/uL (2.0-7.7); Basophil# 0.01 X10^3/uL; Basophil% 0.3 % (0-1); Eosinophil# 0.28 X10^3/uL; Hematocrit 35.8 % (37-47); Hemoglobin 11.2 g/dL (12.0-15.0); Lymphocyte # 0.79 X10^3/ul (0.83-4.51); Lymphocyte % 22.6 % (19-41); Mean Corp Hgb Conc 31.3 g/dL (32-36); Mean Corpuscular Hgb 25.6 pg (27.0-32.0); Mean Corpuscular Volume 81.7 fL (81-99); Mean Platelet Vol. 10.5 fl (6.2-12.0); Monocyte# 0.34 X10^3/uL; Monocyte% 9.7 % (0-10); NRBC Flagged by Analyzer 0 % (0-5); Neutrophil # 2.07 X10^3/uL (2.7-7.7); Neutrophil % 59.1 % (47-70); POSITIVE COUNT YES; Platelet Count 79 K/mm3 (150-450); RBC Distribution Width CV 13.5 % (11.6-14.6); RBC Distribution Width SD 40.4 fl (35.1-43.9); Red Blood Count 4.38 M/mm3 (4.2-5.4); White Blood Count 3.5 K/mm3 (4.4-11.0)
[2023-07-09 10:04] LABS: Differential Indicated SCAN CRITERIA MET
[2023-07-09 10:25] LABS: Anion Gap 5 (5-15); BUN 10 mg/dL (7-18); BUN/Creat Ratio 16.2 RATIO (10-20); Calcium,Total 8.7 mg/dL (8.5-10.1); Chloride 108 mmol/L (98-107); Creatinine, Serum 0.62 mg/dL (0.55-1.02); EST Glomerular Filtration Rate 111 mL/min (>60); Est Glom Filt Rate - Afr Amer 134 mL/min (>60); Estimated Creatinine Clearance 103.11 ml/min; Glucose 105 mg/dL (74-106); Potassium 3.7 mmol/L (3.5-5.1); Sodium Level 142 mmol/L (136-145); Troponin-I HS 5 pg/mL (3.0-54.0)
[2023-07-09 10:27] LABS: BNP,B-Type NATRIURETIC PEPTIDE 14.6 pg/mL (0-100)
[2023-07-09 10:55] LABS: Differential Comment SCANNED; Platelet Estimate MOD DEC (ADEQ)
[2023-07-09 12:32] VITALS: PULSE 85; RESP 20
[2023-07-09 12:43] LABS: AST(SGOT) 28 U/L (15-37); Alanine Aminotransfer ALT/SGPT 36 U/L (13-56); Albumin, Serum 3.2 g/dL (3.2-5.0); Alkaline Phosphatase 125 U/L (45-117); Bilirubin, Direct 0.16 mg/dL (0.00-0.30); Globulin 4.2 g/dL (2.2-4.2); Protein, Total 7.4 g/dL (6.4-8.2)
[2023-07-09 13:14] LABS: Prothrombin Time (Protime)PT. 12.9 SECONDS (11.7-14.9)
[2023-07-09 13:16] LABS: Partial Thromboplast Time 27.6 Seconds (24.1-36.2)
[2023-07-09 13:18] LABS: Fibrinogen 585 mg/dl (203-444)
[2023-07-09 13:31] VITALS: RESP 16
== END 2023-07-09 13:31 | disposition home or self-care (01) ==
PROVIDERS: Emergency Provider Emergency Medicine; PCP Family Medicine; Visit Provider Emergency Medicine
DX: J06.9 Acute upper respiratory infection, unspecified (principal); R05.9 Cough, unspecified; Z85.3 Personal history of malignant neoplasm of breast; Z92.21 Personal history of antineoplastic chemotherapy; Z90.10 Acquired absence of unspecified breast and nipple; R06.02 Shortness of breath
CPT/HCPCS: 71275; 80048; 80076; 83880; 84484; 85025; 85384; 85610; 85730; 87428; 93005; 96361; 96374; 99283; J7040; Q9967; A4216

== ENCOUNTER 2023-11-26 21:50 | Emergency (ER) | payer OTHER, SELFPAY ==
[2023-11-26 21:51] VITALS: BP 122/97; PULSE 112; RESP 20; TEMP 36.3; O2SAT 96
[2023-11-26] MEDS: Ondansetron ODT 4 MG Tablet PO (22:39)
[2023-11-26] MEDS: Morphine 4 MG/ML Syringe 6 MG IM (22:39)
--- NOTE | 2023-11-26 22:45 | RAD_ITS ---
EXAM: XR LEFT KNEE, 3 VIEWS CLINICAL INDICATION: pain TECHNIQUE: Three views of the left knee. COMPARISON: No relevant prior studies available. FINDINGS: BONES/JOINTS: Unremarkable. No acute fracture. No subluxation. Normal alignment. Preservation of the joint space. No sclerotic or destructive changes observed. SOFT TISSUES: Unremarkable. No soft tissue swelling or gas. No radiopaque foreign body. RAD/Knee 3 Views IMPRESSION: Negative left knee x-rays. Electronically Signed: Los Batista MD at 23:32 EDT ,
--- NOTE | 2023-11-26 22:45 | RAD_ITS ---
EXAM: XR LEFT HAND COMPLETE, 3 OR MORE VIEWS CLINICAL INDICATION: pain TECHNIQUE: Frontal, lateral and oblique views of the left hand. COMPARISON: No relevant prior studies available. FINDINGS: BONES/JOINTS: Unremarkable. No acute fracture. No subluxation. Normal alignment. Preservation of the joint space. No sclerotic or destructive changes observed. SOFT TISSUES: Unremarkable. No soft tissue swelling or gas. No radiopaque foreign body. RAD/Hand Min 3 Views IMPRESSION: Negative left hand x-rays. Electronically Signed: Los Batista MD at 23:31 EDT ,
--- NOTE | 2023-11-26 22:45 | RAD_ITS ---
EXAM: XR LEFT FOREARM, 2 VIEWS CLINICAL INDICATION: pain TECHNIQUE: Frontal and lateral views of the left forearm. COMPARISON: No relevant prior studies available. FINDINGS: BONES/JOINTS: Unremarkable. No acute fracture. No dislocation. SOFT TISSUES: Unremarkable. RAD/Forearm 2 Views IMPRESSION: Negative left forearm x-rays. Electronically Signed: Los Batista MD at 23:31 EDT ,
--- NOTE | 2023-11-26 23:53 | EX.ED.DYSGE1 ---
HPI History of Present Illness Chief Complaint: Fall Informant: patient and family Narrative Narrative: Patient is a 43-year-old female with remote history of breast cancer currently in remission. She states that roughly an hour prior to arrival she went out on the back deck to let the dogs in and she slipped on the wet surface. She states she twisted her left knee and landed on her left side. She reports pain to her left knee and left hand/wrist at this time. She denies striking her head any loss of consciousness history of bleeding disorder or blood thinner use. She states she has been able to ambulate following the fall. However she has swelling and pain with decreased range of motion in the left wrist concern for fracture and with this comes in for evaluation [facility] Medical History (Updated 11/26/23 @ 23:[address] Jose Salas, ) Anemia Breast cancer Cancer Carcinoma of breast, estrogen and progesterone receptor positive Chemotherapy management, encounter for Easy bruising Excessive bleeding Hay fever History of echocardiogram History of removal of cervix but not uterus Non-smoker Wears dentures Wears glasses Home Medications duloxetine 30 mg capsule,delayed release 30 mg PO DAILY 11/21/22 [History Last Taken Unknown] ferrous sulfate 325 mg (65 mg iron) tablet 325 mg PO DAILY 11/21/22 [History Last Taken Unknown] gabapentin 300 mg capsule 300 mg PO BID 11/21/22 [History Last Taken 11/28/22] letrozole 2.5 mg tablet 2.5 mg PO DAILY 11/21/22 [History Last Taken Unknown] oxycodone 5 mg tablet 5 mg PO Q6H PRN PRN severe pain 7 days #12 TABLETS 11/28/22 [Rx Last Taken Unknown] ondansetron 4 mg disintegrating tablet 4 mg PO Q6H PRN nausea and vomiting #20 tabs 12/01/22 [Rx Last Taken Unknown] promethazine 25 mg rectal suppository (Promethegan) 25 mg RI Q6H PRN Nausea 12/01/22 [History Last Taken Unknown] oxycodone-acetaminophen 5 mg-325 mg tablet (Percocet) 1 tab PO Q6H PRN pain 3 days #12 tabs 11/26/23 [Rx Last Taken Unknown] Allergy/AdvReac Type Severity Reaction Status Date / Time codeine Allergy Severe Swelling Verified 11/26/23 21:53 iodine Allergy Hives Verified 11/26/23 21:53 shellfish derived Allergy Hives Verified 11/26/23 21:53 Family History Other Cancer Heart disease Surgical History History of delivery History of removal of both ovaries Hx of lymph node excision Hx of mastectomy Status post surgical removal of both fallopian tubes Social History Smoking Status: Never smoker alcohol intake: never ROS ROS ED Constitutional Constitutional ED: Denies chills or fever(s) Eyes Eyes: Denies blurry vision or change in vision ENT ENT ED: Denies sore throat Cardiovascular Cardiovascular: Denies chest pain Respiratory/Chest Respiratory/Chest: Denies cough or dyspnea Gastrointestinal Gastrointestinal: Denies abdominal pain, diarrhea, nausea or vomiting Genitourinary Genitourinary ED: Denies dysuria Musculoskeletal Musculoskeletal: Reports other Details: Positive left knee and left hand/wrist pain ; Denies back pain or neck pain Integumentary Denies Abrasions or rash Neurologic Neurologic: Denies headache(s), paresthesias or weakness Hematologic/Lymphatic Hematologic/Lymphatic: Denies easy bleeding or easy bruising EXAM Physical Exam Const Vital Signs: 11/26/23 21:51 11/26/23 21:51 11/27/23 00:15 Temperature 97.4 F L 97.4 F L Temperature Source Temporal Pulse Rate 112 H 112 H Respiratory Rate 20 H 20 H Respiratory Effort Normal Non-Labored Respiratory Depth Normal Respiratory Pattern Normal Blood Pressure 122/97 H 122/97 H Blood Pressure Mean 105 105 Pulse Ox 96 96 Oxygen Delivery Method Room Air Room Air Positive well nourished and well developed General Appearance ED: well developed; Negative for pallor HEENT HEENT Narrative: Normocephalic atraumatic No signs of depressed or basilar skull fracture Eyes PERRL and EOMs intact bilaterally General Eye ED: Negative for scleral icterus Neck supple Neck Narrative: No bony deformity or step-off of the cervical spine no midline pain with palpation Chest Wall palpation of chest normal Resp normal respiratory effort and clear to auscultation bilaterally Cardio regular rate and regular rhythm Back/Spine Back/Spine Narrative: No bony deformity or step-off of the thoracic or lumbar spine no midline pain on palpation Extremity Extremity Narrative: Pelvis is stable there is no shortening or external rotation of either lower extremity No obvious soft tissue swelling bony deformity or joint effusion of the left knee. Patellar tendon is intact and knee ligaments are stable. Active range of motion is decreased secondary to pain Left upper extremity is neurovascularly intact; AIN/PIN are intact and normal. There is mild soft tissue swelling ecchymosis to the dorsal aspect of the left distal forearm/wrist. No pain with palpation of the anatomical snuffbox. No obvious bony deformity or joint effusion. Active range of motion is decreased secondary to pain Remainder of the exam is normal Neuro oriented x3, CN's II-XII intact bilaterally and no sensory deficits noted Sensorium / Orientation: alert Psych mental status grossly normal Skin no rashes or lesions noted Skin Narrative: Soft tissue swelling of the left distal radius/wrist with faint ecchymosis as documented above General Skin Exam: Negative for jaundice or pallor MDM MDM MDM Narrative Medical decision making narrative: Patient arrived to the ER awake alert and oriented with stable vitals and no report or signs of traumatic brain injury. She reported a mechanical fall so there is no need for cardiac or syncope workup. Differential diagnosis is for fracture versus contusion versus dislocation versus ligamentous sprain or tear. Knee ligamentous are not loose when compared to each other going against a ligamentous tear. There is no obvious bony deformity or joint effusion going against fracture or dislocation. X-rays were obtained and revealed no acute traumatic findings indicating patient has sprains and contusions. As she is neurovascularly intact without ligamentous laxity there is no need for further evaluation by orthopedics at this time she is otherwise safe for discharge with symptomatic care History & Record Review Discussion w/independent historian: Patient Radiography Diagnostic Testing: Clinical Impression(s) from Imaging Studies Forearm X-Ray 11/26/23 22:45 IMPRESSION: Negative left forearm x-rays. Electronically Signed: Los Batisat MD at 23:31 EDT , Hand X-Ray 11/26/23 22:45 IMPRESSION: Negative left hand x-rays. Electronically Signed: Los Batista MD at 23:31 EDT , Knee X-Ray 11/26/23 22:45 IMPRESSION: Negative left knee x-rays. Electronically Signed: Los Batista MD at 23:32 EDT , X-ray of the left knee as interpreted by the emergency medicine physician reveals no acute fracture dislocation or joint effusion X-ray of the left hand as interpreted by the emergency medicine physician reveals no acute fracture or dislocation X-ray of the left forearm as interpreted by the emergency medicine physician reveals no acute fracture or dislocation Discharge Plan Triage Chief Complaint: Fall ED Provider: Jose Salas Dx/Rx/DC Orders Clinical Impression: Left knee sprain, Accidental fall, Contusion of left wrist Instructions: Bone Contusion, ED Knee Sprain Prescriptions: New oxycodone-acetaminophen [Percocet] 5-325 mg tablet 1 tab PO Q6H PRN (Reason: pain) 3 Days Qty: 12 0RF No Action ferrous sulfate 325 mg (65 mg iron) Tablet 325 mg PO DAILY gabapentin 300 mg capsule 300 mg PO BID Patient Comments: take 1 capsule by mouth twice a day letrozole 2.5 mg tablet 2.5 mg PO DAILY Patient Comments: take 1 tablet by mouth once daily duloxetine 30 mg capsule,delayed release(DR/EC) 30 mg PO DAILY oxycodone 5 mg tablet 5 mg PO Q6H PRN PRN (Reason: severe pain) 7 Days Qty: 12 0RF promethazine [Promethegan] 25 mg suppository 25 mg RI Q6H PRN (Reason: Nausea) ondansetron 4 mg tablet,disintegrating 4 mg PO Q6H PRN (Reason: nausea and vomiting) Qty: 20 0RF Primary Care Provider: Lui Simpson Referrals: Lui Simpson MD [Primary Care Provider] - Disposition Disposition: Home, Self Care Discharge Date/Time: 11/27/23 00:17
[2023-11-27] MEDS: Oxycodone/Apap 5/325 Tablet PO (00:05)
[2023-11-27 00:15] VITALS: BP 122/97; PULSE 112; RESP 20; TEMP 36.3; O2SAT 96
== END 2023-11-27 00:17 | disposition home or self-care (01) ==
PROVIDERS: Emergency Provider Emergency Medicine; PCP Family Medicine; Visit Provider Emergency Medicine
DX: S83.92XA Sprain of unspecified site of left knee, initial encounter (principal); S60.212A Contusion of left wrist, initial encounter; Z85.3 Personal history of malignant neoplasm of breast; W01.198A Fall on same level from slipping, tripping and stumbling with subsequent striking against other object, initial encounter; Y93.K9 Activity, other involving animal care; Y92.89 Other specified places as the place of occurrence of the external cause; Z90.10 Acquired absence of unspecified breast and nipple
CPT/HCPCS: 73090; 73130; 73562; 96372; 99283